=== PATIENT | male | born 1950 | race Caucasian/White ===

== ENCOUNTER 2018-03-19 15:38 | Inpatient (IN) | payer MEDICARE, MEDICAID ==
[~2018-03-19] VITALS: Ht 182.9 cm; Wt 83.9 kg
[2018-03-19 17:11] LABS: BASOPHILS % 1.1 % (0.0-2.0); LYMPHOCYTES % 13.8 % (20.0-50.0); MEAN CORPUSCULAR VOLUME 95.1 fL (80.0-94.0); MONOCYTES % 13.4 % (2.0-8.0); NEUTROPHILS % 69.7 % (40.0-76.0); RED BLOOD CELL COUNT 2.15 mill/uL (4.7-6.1); RED CELL DISTRIBUTION WIDTH 19.5 % (11.6-14.6)
[2018-03-19 17:13] LABS: HEMOGLOBIN. 6.9 g/dL (14.0-18.0)
[2018-03-19 17:14] LABS: HEMATOCRIT. 20.5 % (42.0-52.0)
[2018-03-19 17:17] LABS: CHLORIDE 108 mEq/L (98-107)
[2018-03-19 17:51] LABS: INR 1.2; PROTHROMBIN TIME 12.1 sec (9.4-11.6)
[2018-03-19 19:24] LABS: CLARITY URINE CLEAR (CLEAR); COLOR URINE YELLOW (YELLOW); KETONES URINE NEGATIVE (NEGATIVE); LEUKOCYTE ESTERASE URINE TRACE (NEGATIVE); NITRITE URINE NEGATIVE (NEGATIVE); OCCULT BLOOD URINE 3+ (NEGATIVE); PH URINE 5.5 (4.5-8.0); PROTEIN URINE 2+ (NEGATIVE); SPECIFIC GRAVITY URINE 1.017 (1.005-1.030); UROBILINOGEN URINE 0.2 E.U./dL (0.2-1.0)
[2018-03-19] MEDS ORDERED: DOCUSATE SODIUM 100MG CAPSULE PO PRN (20:15)
[2018-03-19] MEDS ORDERED: GUAIFENESIN 200MG/10ML SUGAR FREE UDC PO PRN (20:15)
[2018-03-19] MEDS ORDERED: ACETAMINOPHEN 325MG TABLET PO PRN (20:30)
[2018-03-19 21:00] VITALS: BP 139/68
[2018-03-19] MEDS ORDERED: LORAZEPAM 2MG/ML CPJ IV PRN (21:00)
[2018-03-19] MEDS ORDERED: HYDROCODONE/APAP 7.5/325MG 1 TAB TABLET PO PRN (21:00)
[2018-03-19 22:00] VITALS: BP 124/62
[2018-03-20] VITALS (16 sets, daily range): BP systolic 72–147; BP diastolic 38–89
[2018-03-20] MEDS ORDERED: GABA-529 GT (04:57)
[2018-03-20] MEDS ORDERED: ZINC220T GT (04:57)
[2018-03-20] MEDS ORDERED: POLY250017 GT (04:57)
[2018-03-20] MEDS ORDERED: FAMO40TA7 GT (04:57)
[2018-03-20] MEDS ORDERED: DOCU-138 GT (04:57)
[2018-03-20] MEDS ORDERED: FERR220S16 GT (04:57)
[2018-03-20] MEDS ORDERED: VALP250S5 PO (04:57)
[2018-03-20] MEDS ORDERED: BISA10SU62 RC (04:57)
[2018-03-20] MEDS ORDERED: METH500T6 GT (04:57)
[2018-03-20] MEDS ORDERED: PROP40TA7 GT (04:57)
[2018-03-20] MEDS ORDERED: METH500T6 PO (04:57)
[2018-03-20] MEDS ORDERED: INSLIS SUBCUT (04:58)
[2018-03-20 07:51] LABS: BASOPHILS % 0.1 % (0.0-2.0); EOSINOPHILS % 1.8 % (0.0-5.0); HEMATOCRIT. 26.4 % (42.0-52.0); LYMPHOCYTES % 9.7 % (20.0-50.0); MEAN CORPUSCULAR HEMOGLOBIN 32.6 pg (28.0-32.0); MEAN CORPUSCULAR VOLUME 95.3 fL (80.0-94.0); MONOCYTES % 11.4 % (2.0-8.0); RED BLOOD CELL COUNT 2.77 mill/uL (4.7-6.1); RED CELL DISTRIBUTION WIDTH 22.7 % (11.6-14.6)
[2018-03-20 07:57] LABS: CHLORIDE 110 mEq/L (98-107)
[2018-03-20 08:02] LABS: PHOSPHORUS 3.9 mg/dL (2.5-4.9)
[2018-03-20 08:47] LABS: LDL CHOLESTEROL 43 mg/dL (5-100)
[2018-03-20 08:48] LABS: HDL CHOLESTEROL 21 mg/dL (40-59); T4 FREE 0.64 ng/dL (0.76-1.46)
[2018-03-20] MEDS: IPRATROPIUM/ALBUTEROL 0.5-3(2.5)MG/3ML NEB INH PRN ×2 (09:30→12:44)
[2018-03-20] MEDS ORDERED: BISACODYL 5MG TABLET PO PRN (10:45)
[2018-03-20] MEDS ORDERED: LEVOTHYROXINE SODIUM 150MCG TABLET PO SCH (10:45)
[2018-03-20 10:56] LABS: BG BASE EXCESS 5.3 mmol/L (-2.0-2.0); BG CARBOXYHEMOGLOBIN 1.7 % (0.5-1.5); BG DEOXYHEMOGLOBIN 6.4 % (0.0-5.0); BG HCO3 ACT 29.8 mmol/L (22.0-26.0); BG METHEMOGLOBIN 0.3 % (0.0-1.5); BG OXYGEN SATURATION 93.5 % (92.0-98.5); BG OXYHEMOGLOBIN 91.6 % (94.0-97.0); BG PCO2 43.2 mmHg (35.0-45.0); BG PH 7.456 (7.350-7.450); BG SAMPLE SITE LEFT RADIAL; BG TIDAL VOLUME(mL) 500 mL; BG TOTAL HEMOGLOBIN 8.6 g/dL (12.0-18.0); BG VENT MODE VENT - A/C; BG VENT RATE 10 set
[2018-03-20] MEDS: DOCUSATE SODIUM SUGAR FREE 100MG/10ML UDC NG SCH (11:11)
[2018-03-20] MEDS: FAMOTIDINE 20MG TABLET PO SCH ×2 (11:11→21:53)
[2018-03-20 11:57] LABS: PLATELET 134 x1000/uL (130-400)
[2018-03-20] MEDS: METHOCARBAMOL 500MG TABLET PO SCH (12:24)
[2018-03-20 13:14] LABS: TOTAL IRON BINDING CAPACITY 182 ug/dL (250-450)
[2018-03-20] MEDS: VALPROATE SODIUM 250MG/5ML UDC PO SCH ×2 (14:07→21:53)
[2018-03-20] MEDS ORDERED: FUROSEMIDE 40MG/4ML VIAL IVP NR (16:00)
[2018-03-20] MEDS ORDERED: LEVOFLOXACIN 500MG PREMIX 100 ML IV SCH (17:00)
[2018-03-20] MEDS: IPRATROPIUM/ALBUTEROL 0.5-3(2.5)MG/3ML NEB HHN SCH ×2 (18:03→20:14)
[2018-03-20] MEDS: PANTOPRAZOLE SODIUM 40 MG/VIAL IV SCH (21:54)
[2018-03-21] VITALS (18 sets, daily range): BP systolic 116–153; BP diastolic 45–79
[2018-03-21] MEDS: ACETYLCYSTEINE 100MG/ML 10% VIAL 4ML INH SCH ×2 (00:19→08:51)
[2018-03-21] MEDS: IPRATROPIUM/ALBUTEROL 0.5-3(2.5)MG/3ML NEB HHN SCH ×6 (00:19→20:11)
[2018-03-21] MEDS: VALPROATE SODIUM 250MG/5ML UDC PO SCH ×3 (06:00→21:27)
[2018-03-21] MEDS: LEVOTHYROXINE SODIUM 50MCG TABLET PO SCH (07:30)
[2018-03-21] MEDS: FAMOTIDINE 20MG TABLET PO SCH (09:00)
[2018-03-21] MEDS: DOCUSATE SODIUM SUGAR FREE 100MG/10ML UDC NG SCH (09:00)
[2018-03-21] MEDS: METHOCARBAMOL 500MG TABLET PO SCH (09:00)
[2018-03-21] MEDS: FUROSEMIDE 40MG/4ML VIAL IVP SCH (09:19)
[2018-03-21] MEDS: PANTOPRAZOLE SODIUM 40 MG/VIAL IV SCH ×2 (09:19→21:26)
[2018-03-21 09:55] LABS: HEMATOCRIT. 22.4 % (42.0-52.0); HEMOGLOBIN. 7.8 g/dL (14.0-18.0); MEAN CORPUSCULAR HEMOGLOBIN 33.5 pg (28.0-32.0); MEAN CORPUSCULAR VOLUME 96.7 fL (80.0-94.0); MEAN PLATELET VOLUME 7.3 fl (7.4-10.4); PLATELET 193 x1000/uL (130-400); RED BLOOD CELL COUNT 2.32 mill/uL (4.7-6.1); RED CELL DISTRIBUTION WIDTH 21.6 % (11.6-14.6)
[2018-03-21 09:59] LABS: INR 1.2; PARTIAL THROMBOPLASTIN TIME 28.8 sec (23.4-31.0); PROTHROMBIN TIME 12.5 sec (9.4-11.6)
[2018-03-21 10:26] LABS: CHLORIDE 108 mEq/L (98-107)
[2018-03-21 10:33] LABS: PLATELET ESTIMATE NORMAL
[2018-03-21] MEDS ORDERED: SODIUM CHLORIDE 0.9% 10ML VIAL ONE (13:34)
[2018-03-21] MEDS ORDERED: HYDRALAZINE 20MG/ML VIAL IV PRN (13:45)
[2018-03-21] MEDS: PIPERACILLIN/TAZ 3.375G PREMIX 50 ML IV SCH ×2 (16:37→21:27)
[2018-03-21] MEDS ORDERED: MIDAZOLAM HCL 5 MG/5 ML VIAL ONE (17:46)
[2018-03-21] MEDS ORDERED: SIMETHICONE 40 MG/0.6 ML 30ML ONE (17:46)
[2018-03-21] MEDS ORDERED: FENTANYL CITRATE/PF 50MCG/ML 2ML VIAL ONE (17:46)
[2018-03-21] MEDS ORDERED: MIDAZOLAM HCL 2 MG/2 ML VIAL IV PRN (18:17)
[2018-03-22] VITALS (33 sets, daily range): BP systolic 100–156; BP diastolic 55–141
[2018-03-22] MEDS: IPRATROPIUM/ALBUTEROL 0.5-3(2.5)MG/3ML NEB HHN SCH ×7 (00:18→20:45)
[2018-03-22] MEDS: ACETYLCYSTEINE 100MG/ML 10% VIAL 4ML INH SCH ×3 (00:18→15:27)
[2018-03-22] MEDS: PIPERACILLIN/TAZ 3.375G PREMIX 50 ML IV SCH ×3 (06:14→21:48)
[2018-03-22] MEDS: LEVOTHYROXINE SODIUM 50MCG TABLET PO SCH (06:15)
[2018-03-22] MEDS: VALPROATE SODIUM 250MG/5ML UDC PO SCH ×3 (06:15→21:49)
[2018-03-22 06:51] LABS: BASOPHILS % 0.3 % (0.0-2.0); EOSINOPHILS % 2.2 % (0.0-5.0); HEMATOCRIT. 22.9 % (42.0-52.0); HEMOGLOBIN. 7.8 g/dL (14.0-18.0); LYMPHOCYTES % 7.7 % (20.0-50.0); MEAN CORPUSCULAR HEMOGLOBIN 32.2 pg (28.0-32.0); MEAN CORPUSCULAR VOLUME 93.9 fL (80.0-94.0); MEAN PLATELET VOLUME 7.1 fl (7.4-10.4); NEUTROPHILS % 81.8 % (40.0-76.0); PLATELET 196 x1000/uL (130-400); RED BLOOD CELL COUNT 2.43 mill/uL (4.7-6.1); RED CELL DISTRIBUTION WIDTH 21.6 % (11.6-14.6)
[2018-03-22 07:33] LABS: CHLORIDE 109 mEq/L (98-107)
[2018-03-22 07:50] LABS: INR 1.2; PARTIAL THROMBOPLASTIN TIME 29.6 sec (23.4-31.0); PROTHROMBIN TIME 12.2 sec (9.4-11.6)
[2018-03-22] MEDS: FUROSEMIDE 40MG/4ML VIAL IVP SCH (09:02)
[2018-03-22] MEDS: DOCUSATE SODIUM SUGAR FREE 100MG/10ML UDC NG SCH (09:03)
[2018-03-22] MEDS: PANTOPRAZOLE SODIUM 40 MG/VIAL IV SCH (09:48)
[2018-03-22] MEDS: METHOCARBAMOL 500MG TABLET PO SCH (09:51)
[2018-03-22 11:25] LABS: BG BASE EXCESS 7.3 mmol/L (-2.0-2.0); BG CARBOXYHEMOGLOBIN 0.1 % (0.5-1.5); BG DEOXYHEMOGLOBIN 1.3 % (0.0-5.0); BG FRACTION INSPIRED OXYGEN 50; BG HCO3 ACT 31.4 mmol/L (22.0-26.0); BG METHEMOGLOBIN 0.1 % (0.0-1.5); BG OXYGEN SATURATION 98.7 % (92.0-98.5); BG OXYHEMOGLOBIN 98.5 % (94.0-97.0); BG PCO2 42.2 mmHg (35.0-45.0); BG PH 7.489 (7.350-7.450); BG PO2 161.1 mmHg (75.0-100.0); BG SAMPLE SITE LEFT RADIAL; BG TIDAL VOLUME(mL) 500 mL; BG TOTAL HEMOGLOBIN 8.4 g/dL (12.0-18.0); BG VENT MODE VENT - A/C; BG VENT RATE 10 set
[2018-03-23] VITALS (23 sets, daily range): BP systolic 109–140; BP diastolic 64–83
[2018-03-23] MEDS: ACETYLCYSTEINE 100MG/ML 10% VIAL 4ML INH SCH ×3 (00:15→15:52)
[2018-03-23] MEDS: IPRATROPIUM/ALBUTEROL 0.5-3(2.5)MG/3ML NEB HHN SCH ×6 (02:05→21:03)
[2018-03-23] MEDS: IPRATROPIUM/ALBUTEROL 0.5-3(2.5)MG/3ML NEB INH PRN (03:19)
[2018-03-23] MEDS: PIPERACILLIN/TAZ 3.375G PREMIX 50 ML IV SCH ×3 (06:40→21:27)
[2018-03-23 07:40] LABS: CHLORIDE 111 mEq/L (98-107)
[2018-03-23 07:43] LABS: HEMOGLOBIN 7.1 g/dL (14.0-18.0); MEAN CORPUSCULAR HEMOGLOBIN 33.3 pg (28.0-32.0); MEAN CORPUSCULAR VOLUME 98.3 fL (80.0-94.0); PLATELET 152 x1000/uL (130-400); RED BLOOD CELL COUNT 2.13 mill/uL (4.7-6.1); RED CELL DISTRIBUTION WIDTH 21.4 % (11.6-14.6)
[2018-03-23] MEDS: LEVOTHYROXINE SODIUM 50MCG TABLET PO SCH (07:52)
[2018-03-23] MEDS: VALPROATE SODIUM 250MG/5ML UDC PO SCH ×3 (07:53→21:43)
[2018-03-23] MEDS ORDERED: POTASSIUM CHLORIDE 20MEQ/PACKET PO NR (08:39)
[2018-03-23 08:47] LABS: HEMATOCRIT 20.9 % (42.0-52.0)
[2018-03-23] MEDS: DOCUSATE SODIUM SUGAR FREE 100MG/10ML UDC NG SCH (09:35)
[2018-03-23] MEDS: PANTOPRAZOLE SODIUM 40 MG/VIAL IV SCH (09:35)
[2018-03-23] MEDS: FUROSEMIDE 40MG/4ML VIAL IVP SCH (09:36)
[2018-03-23] MEDS: METHOCARBAMOL 500MG TABLET PO SCH (09:36)
[2018-03-23 15:38] LABS: BG BASE EXCESS 7.5 mmol/L (-2.0-2.0); BG DEOXYHEMOGLOBIN 2.2 % (0.0-5.0); BG FRACTION INSPIRED OXYGEN 40; BG HCO3 ACT 31.6 mmol/L (22.0-26.0); BG METHEMOGLOBIN 0.2 % (0.0-1.5); BG OXYGEN SATURATION 97.8 % (92.0-98.5); BG OXYHEMOGLOBIN 97.6 % (94.0-97.0); BG PCO2 42.6 mmHg (35.0-45.0); BG PH 7.488 (7.350-7.450); BG PO2 113.5 mmHg (75.0-100.0); BG SAMPLE SITE RIGHT RADIAL; BG TIDAL VOLUME(mL) 550 mL; BG TOTAL HEMOGLOBIN 7.6 g/dL (12.0-18.0); BG VENT MODE VENT - A/C; BG VENT RATE 10 set
[2018-03-23 23:53] LABS: HEMATOCRIT 26.6 % (42.0-52.0); HEMOGLOBIN 9.1 g/dL (14.0-18.0)
[2018-03-24] VITALS (11 sets, daily range): BP systolic 120–164; BP diastolic 37–86
[2018-03-24] MEDS: ACETYLCYSTEINE 100MG/ML 10% VIAL 4ML INH SCH ×3 (00:14→16:25)
[2018-03-24] MEDS: IPRATROPIUM/ALBUTEROL 0.5-3(2.5)MG/3ML NEB HHN SCH ×6 (00:15→21:00)
[2018-03-24] MEDS: PIPERACILLIN/TAZ 3.375G PREMIX 50 ML IV SCH ×3 (05:42→22:49)
[2018-03-24 06:30] LABS: BASOPHILS % 0.1 % (0.0-2.0); EOSINOPHILS % 2.5 % (0.0-5.0); HEMATOCRIT. 25.7 % (42.0-52.0); HEMOGLOBIN. 8.7 g/dL (14.0-18.0); LYMPHOCYTES % 10.1 % (20.0-50.0); MEAN CORPUSCULAR HEMOGLOBIN 31.4 pg (28.0-32.0); MEAN CORPUSCULAR VOLUME 92.7 fL (80.0-94.0); MEAN PLATELET VOLUME 7.4 fl (7.4-10.4); MONOCYTES % 10.6 % (2.0-8.0); NEUTROPHILS % 76.7 % (40.0-76.0); PLATELET 140 x1000/uL (130-400); RED BLOOD CELL COUNT 2.78 mill/uL (4.7-6.1); RED CELL DISTRIBUTION WIDTH 21.4 % (11.6-14.6)
[2018-03-24 06:54] LABS: CHLORIDE 113 mEq/L (98-107)
[2018-03-24] MEDS: LEVOTHYROXINE SODIUM 50MCG TABLET PO SCH (07:42)
[2018-03-24] MEDS: DOCUSATE SODIUM SUGAR FREE 100MG/10ML UDC NG SCH (09:00)
[2018-03-24] MEDS: PANTOPRAZOLE SODIUM 40 MG/VIAL IV SCH (09:03)
[2018-03-24] MEDS: METHOCARBAMOL 500MG TABLET PO SCH (09:04)
[2018-03-24] MEDS: FUROSEMIDE 40MG/4ML VIAL IVP SCH (09:04)
[2018-03-24] MEDS: VALPROATE SODIUM 250MG/5ML UDC PO SCH ×3 (09:05→22:49)
[2018-03-24] MEDS ORDERED: POTASSIUM CHLORIDE INJ 40 MEQ in DEXT 5% WATER 250 ML IV ONE (16:30)
[2018-03-24] MEDS: KCL 20MEQ/100ML PREMIX 100 ML IV SCH ×3 (18:27→22:00)
[2018-03-25] VITALS (11 sets, daily range): BP systolic 108–157; BP diastolic 59–84
[2018-03-25] MEDS: ACETYLCYSTEINE 100MG/ML 10% VIAL 4ML INH SCH ×3 (00:26→16:17)
[2018-03-25] MEDS: IPRATROPIUM/ALBUTEROL 0.5-3(2.5)MG/3ML NEB HHN SCH ×6 (00:27→20:50)
[2018-03-25 06:21] LABS: BASOPHILS % 0.1 % (0.0-2.0); EOSINOPHILS % 4.2 % (0.0-5.0); HEMATOCRIT. 27.7 % (42.0-52.0); HEMOGLOBIN. 9.4 g/dL (14.0-18.0); LYMPHOCYTES % 10.6 % (20.0-50.0); MEAN CORPUSCULAR HEMOGLOBIN 32.2 pg (28.0-32.0); MEAN CORPUSCULAR VOLUME 94.8 fL (80.0-94.0); MEAN PLATELET VOLUME 7.1 fl (7.4-10.4); MONOCYTES % 12.5 % (2.0-8.0); NEUTROPHILS % 72.6 % (40.0-76.0); PLATELET 114 x1000/uL (130-400); RED BLOOD CELL COUNT 2.92 mill/uL (4.7-6.1); RED CELL DISTRIBUTION WIDTH 21.4 % (11.6-14.6)
[2018-03-25 06:49] LABS: CHLORIDE 113 mEq/L (98-107)
[2018-03-25] MEDS: PIPERACILLIN/TAZ 3.375G PREMIX 50 ML IV SCH ×3 (06:56→22:06)
[2018-03-25] MEDS: LEVOTHYROXINE SODIUM 50MCG TABLET PO SCH (08:07)
[2018-03-25] MEDS: PANTOPRAZOLE SODIUM 40 MG/VIAL IV SCH (08:20)
[2018-03-25] MEDS: FUROSEMIDE 40MG/4ML VIAL IVP SCH (08:50)
[2018-03-25] MEDS: DOCUSATE SODIUM SUGAR FREE 100MG/10ML UDC NG SCH (08:50)
[2018-03-25] MEDS: METHOCARBAMOL 500MG TABLET PO SCH (08:50)
[2018-03-25] MEDS: VALPROATE SODIUM 250MG/5ML UDC PO SCH ×3 (08:51→23:22)
[2018-03-26] VITALS (10 sets, daily range): BP systolic 119–148; BP diastolic 60–90
[2018-03-26] MEDS: IPRATROPIUM/ALBUTEROL 0.5-3(2.5)MG/3ML NEB HHN SCH ×5 (00:28→16:00)
[2018-03-26 05:36] LABS: BASOPHILS % 0.1 % (0.0-2.0); EOSINOPHILS % 3.3 % (0.0-5.0); HEMOGLOBIN. 8.8 g/dL (14.0-18.0); LYMPHOCYTES % 11.3 % (20.0-50.0); MEAN CORPUSCULAR HEMOGLOBIN 31.9 pg (28.0-32.0); MEAN CORPUSCULAR VOLUME 94.5 fL (80.0-94.0); MEAN PLATELET VOLUME 7.8 fl (7.4-10.4); MONOCYTES % 12.3 % (2.0-8.0); PLATELET 74 x1000/uL (130-400); RED BLOOD CELL COUNT 2.75 mill/uL (4.7-6.1); RED CELL DISTRIBUTION WIDTH 21.1 % (11.6-14.6)
[2018-03-26 06:28] LABS: CHLORIDE 114 mEq/L (98-107)
[2018-03-26] MEDS: PIPERACILLIN/TAZ 3.375G PREMIX 50 ML IV SCH ×2 (06:33→14:35)
[2018-03-26] MEDS: DOCUSATE SODIUM SUGAR FREE 100MG/10ML UDC NG SCH (09:00)
[2018-03-26] MEDS ORDERED: FUROSEMIDE 40MG TABLET GT SCH (09:00)
[2018-03-26] MEDS: LEVOTHYROXINE SODIUM 50MCG TABLET PO SCH (10:48)
[2018-03-26] MEDS: METHOCARBAMOL 500MG TABLET PO SCH (10:49)
[2018-03-26] MEDS: PANTOPRAZOLE SODIUM 40 MG/VIAL IV SCH (10:49)
[2018-03-26] MEDS: VALPROATE SODIUM 250MG/5ML UDC PO SCH (14:35)
[2018-03-26] MEDS ORDERED: PIPERACILLIN/TAZ 3.375G PREMIX 50 ML IV SCH (20:00)
[2018-03-27 08:16] LABS: METHYLMALONIC ACID 150 nmol/L (0-378)
[2018-03-27 13:44] LABS: IMMUNOGLOBULIN A 986 mg/dL (61-437); IMMUNOGLOBULIN G 1401 mg/dL (700-1600); IMMUNOGLOBULIN M 346 mg/dL (20-172)
== END 2018-03-26 18:45 | DRG 870 ==
LOC: ER 15:38 → 5EST 17:50 → EDBD 17:50 → ENRESERV 18:27 → SUPCPDRO 20:05 → MICUSO 03-22 02:07 → 5EST 03-22 16:15
PROVIDERS: ADMIT Family Medicine Adult Medicine; ATTEND Family Medicine Adult Medicine
PROC: 0DB68ZX Excision of Stomach, Via Natural or Artificial Opening Endoscopic, Diagnostic (ICD-10-PCS; 2018-03-19)
PROC: 5A1955Z Respiratory Ventilation, Greater than 96 Consecutive Hours (ICD-10-PCS; 2018-03-19)
PROC: 30233N1 Transfusion of Nonautologous Red Blood Cells into Peripheral Vein, Percutaneous Approach (ICD-10-PCS; principal; 2018-03-20)
DX: A41.9 Sepsis, unspecified organism (principal); S06.5X9A Traumatic subdural hemorrhage with loss of consciousness of unspecified duration, initial encounter; J96.20 Acute and chronic respiratory failure, unspecified whether with hypoxia or hypercapnia; E43 Unspecified severe protein-calorie malnutrition; G93.40 Encephalopathy, unspecified; N39.0 Urinary tract infection, site not specified; L03.211 Cellulitis of face; E87.0 Hyperosmolality and hypernatremia; I50.30 Unspecified diastolic (congestive) heart failure; Z99.11 Dependence on respirator [ventilator] status; J98.11 Atelectasis; D53.9 Nutritional anemia, unspecified; E03.9 Hypothyroidism, unspecified; K29.60 Other gastritis without bleeding; K44.9 Diaphragmatic hernia without obstruction or gangrene; G40.909 Epilepsy, unspecified, not intractable, without status epilepticus; I11.0 Hypertensive heart disease with heart failure; E87.8 Other disorders of electrolyte and fluid balance, not elsewhere classified; J38.6 Stenosis of larynx; E11.42 Type 2 diabetes mellitus with diabetic polyneuropathy; R00.1 Bradycardia, unspecified; I27.20 Pulmonary hypertension, unspecified; J39.2 Other diseases of pharynx; K05.10 Chronic gingivitis, plaque induced; X58.XXXA Exposure to other specified factors, initial encounter; J32.0 Chronic maxillary sinusitis; J32.3 Chronic sphenoidal sinusitis; J32.2 Chronic ethmoidal sinusitis; J32.1 Chronic frontal sinusitis; S90.812A Abrasion, left foot, initial encounter; S90.811A Abrasion, right foot, initial encounter; K21.9 Gastro-esophageal reflux disease without esophagitis; K29.50 Unspecified chronic gastritis without bleeding; Z85.819 Personal history of malignant neoplasm of unspecified site of lip, oral cavity, and pharynx; Z93.1 Gastrostomy status; Z93.0 Tracheostomy status; Z68.25 Body mass index [BMI] 25.0-25.9, adult; Z92.3 Personal history of irradiation; Z87.828 Personal history of other (healed) physical injury and trauma; Y93.89 Activity, other specified; Y92.89 Other specified places as the place of occurrence of the external cause; Y99.8 Other external cause status; Z79.4 Long term (current) use of insulin; Z79.899 Other long term (current) drug therapy; Z86.73 Personal history of transient ischemic attack (TIA), and cerebral infarction without residual deficits
CPT/HCPCS: 36415; 36430; 36600; 51702; 70450; 70486; 70490; 71045; 80048; 80053; 80061; 81003; 82270; 82375; 82378; 82728; 82784; 82805; 83036; 83540; 83550; 83615; 83735; 83880; 83921; 84100; 84145; 84439; 84443; 85014; 85018; 85025; 85027; 85610; 85730; 86334; 86850; 86900; 86920; 87040; 87086; 88305; 88312; 88313; 93005; 93306; 93970; 94002; 94003; 94640; 99285; A4216; A6261; C9113; J1940; J1956; J2250; J2543; J3010; J3480; J7030; J7050; J7608; J7620; P9016; A4315

== ENCOUNTER 2018-06-30 08:30 | Inpatient (IN) | payer MEDICARE, MEDICAID ==
[~2018-06-30] VITALS: Ht 175.3 cm; Wt 76.2 kg
[2018-06-30] VITALS (11 sets, daily range): BP systolic 107–137; BP diastolic 64–83
[~2018-06-30 08:30] MED LIST: ACET-2178 PEG; AMLO5TAB88 PEG; ASCO-339 PEG; BISA10SU8 RC; CHLO473M2 SSP; CRAN3875 PEG; CRAN450T10 PEG; CYCL10TA7 PEG; DEXJ4 IV; DEXTL PEG; DIPH-909 PEG; DOCU-138 PEG; FAMO20TA8 PEG; FERR325T6 PEG; FLUC200T PO; HYDR-4134 PEG; LEVE500T19 PEG; LEVO88TA7 PO; MOM PEG; MULT1TAB76 PEG; OFLO5DRO4 LEFT EAR; SUCR1TAB PEG; ZINC220T PEG; [UNRECOGNIZED DRUG - OTHER] PEG; [UNRECOGNIZED DRUG - REMARK] PEG
[2018-06-30] MEDS ORDERED: SODIUM CHLORIDE 0.9% 1,000 ML IV ONE (09:00)
[2018-06-30 09:43] LABS: BASOPHILS % 0.8 % (0.0-2.0); EOSINOPHILS % 1.6 % (0.0-5.0); HEMATOCRIT. 21.5 % (42.0-52.0); HEMOGLOBIN. 7.2 g/dL (14.0-18.0); LYMPHOCYTES % 7.4 % (20.0-50.0); MEAN CORPUSCULAR HEMOGLOBIN 31.4 pg (28.0-32.0); MEAN CORPUSCULAR VOLUME 93.6 fL (80.0-94.0); MEAN PLATELET VOLUME 7.4 fl (7.4-10.4); MONOCYTES % 10.3 % (2.0-8.0); NEUTROPHILS % 79.9 % (40.0-76.0); PLATELET 134 x1000/uL (130-400); RED CELL DISTRIBUTION WIDTH 18.2 % (11.6-14.6)
[2018-06-30 09:50] LABS: INR 1.1; PROTHROMBIN TIME 11.4 sec (9.1-11.1)
[2018-06-30 09:53] LABS: CHLORIDE 115 mEq/L (98-107)
[2018-06-30] MEDS ORDERED: FUROSEMIDE 100MG/10ML VIAL IV STA (10:04)
[2018-06-30] MEDS ORDERED: SODIUM POLYSTYRENE SULFONATE 15 G/60 ML BOT PO ONE (10:15)
[2018-06-30] MEDS ORDERED: INSULIN REGULAR (HUMULIN R) 300UNITS/3ML IV ONE (10:15)
[2018-06-30] MEDS ORDERED: ALBUTEROL (0.083%) 2.5MG/3ML NEB HHN ONE (10:15)
[2018-06-30] MEDS ORDERED: DEXTROSE 50% WATER 50ML SYRINGE IV ONE ×2 (10:15→15:33)
[2018-06-30] MEDS ORDERED: PIPERACILLIN/TAZOBACTAM 3.375GM/50ML PREMIX IV NR (10:30)
[2018-06-30] MEDS ORDERED: VANCOMYCIN 1 G PREMIX 200 ML IV SCH (10:30)
[2018-06-30] MEDS ORDERED: ALBUTEROL (0.5%) 2.5MG/0.5ML NEB HHN ONE (11:23)
[2018-06-30] MEDS ORDERED: ONDANSETRON HCL 4MG/2ML INJ IV PRN (11:30)
[2018-06-30] MEDS ORDERED: DEXAMETHASONE 4MG TABLET PO NR (12:30)
[2018-06-30] MEDS ORDERED: LEVOTHYROXINE SODIUM 88MCG TABLET PO NR (13:00)
[2018-06-30] MEDS: PANTOPRAZOLE 40MG DR TABLET PO SCH (14:27)
[2018-06-30] MEDS: HYDRALAZINE HCL 25MG TABLET PO SCH ×2 (14:28→22:55)
[2018-06-30] MEDS: SODIUM CHLORIDE 0.45% 1,000 ML IV SCH (14:41)
[2018-06-30] MEDS ORDERED: LEVOFLOXACIN 500MG PREMIX 100 ML IV NR (15:00)
[2018-06-30] MEDS: DEXTROSE 50% WATER 50ML SYRINGE IV PRN ×2 (15:33→20:20)
[2018-06-30] MEDS: DEXAMETHASONE 2MG TABLET PO SCH ×2 (19:31→23:47)
[2018-06-30] MEDS: IPRATROPIUM/ALBUTEROL 0.5-3(2.5)MG/3ML NEB HHN SCH (20:25)
[2018-06-30] MEDS: LEVETIRACETAM 500MG TABLET PO SCH (20:48)
[2018-07-01] VITALS (12 sets, daily range): BP systolic 117–139; BP diastolic 24–93
[2018-07-01] MEDS: IPRATROPIUM/ALBUTEROL 0.5-3(2.5)MG/3ML NEB HHN SCH ×5 (00:55→20:07)
[2018-07-01] MEDS: SODIUM CHLORIDE 0.45% 1,000 ML IV SCH ×2 (03:29→09:39)
[2018-07-01 05:42] LABS: CHLORIDE 113 mEq/L (98-107)
[2018-07-01] MEDS: HYDRALAZINE HCL 25MG TABLET PO SCH ×3 (06:12→21:01)
[2018-07-01] MEDS: DEXAMETHASONE 2MG TABLET PO SCH ×3 (06:12→18:49)
[2018-07-01] MEDS ORDERED: SODIUM POLYSTYRENE SULFONATE 15 G/60 ML BOT PO NR (07:00)
[2018-07-01] MEDS: LEVETIRACETAM 500MG TABLET PO SCH ×2 (09:33→21:01)
[2018-07-01] MEDS: PANTOPRAZOLE 40MG DR TABLET PO SCH (09:33)
[2018-07-01 11:06] LABS: CHLORIDE 112 mEq/L (98-107)
[2018-07-01 11:10] LABS: HEMATOCRIT. 28.2 % (42.0-52.0); HEMOGLOBIN. 9.5 g/dL (14.0-18.0); MEAN CORPUSCULAR HEMOGLOBIN 31.8 pg (28.0-32.0); MEAN PLATELET VOLUME 8.2 fl (7.4-10.4); PLATELET 167 x1000/uL (130-400); RED CELL DISTRIBUTION WIDTH 17.5 % (11.6-14.6)
[2018-07-01] MEDS ORDERED: DEXTROSE 50% WATER 50ML SYRINGE IV SCH (12:30)
[2018-07-01] MEDS ORDERED: CALCIUM CHLORIDE 1,000 MG in DEXT 5% WATER 90 ML IV SCH (12:30)
[2018-07-01] MEDS ORDERED: INSULIN REGULAR (HUMULIN R) UD 100 UNITS/ML SYR IV SCH (12:30)
[2018-07-01] MEDS ORDERED: MAGNESIUM 2 G PREMIX 50 ML IV SCH (13:00)
[2018-07-01] MEDS ORDERED: SODIUM POLYSTYRENE SULFONATE 15 G/60 ML BOT PO SCH (13:00)
[2018-07-01 14:30] LABS: BG BASE EXCESS -2.4 mmol/L (-2.0-2.0); BG CARBOXYHEMOGLOBIN 0.9 % (0.5-1.5); BG DEOXYHEMOGLOBIN 3.7 % (0.0-5.0); BG FRACTION INSPIRED OXYGEN 40; BG HCO3 ACT 21.4 mmol/L (22.0-26.0); BG OXYGEN SATURATION 96.3 % (92.0-98.5); BG OXYHEMOGLOBIN 95.4 % (94.0-97.0); BG PCO2 33.4 mmHg (35.0-45.0); BG PH 7.425 (7.350-7.450); BG PO2 86.9 mmHg (75.0-100.0); BG PRESSURE SUPPORT 14; BG SAMPLE SITE RIGHT RADIAL; BG TIDAL VOLUME(mL) 500 mL; BG TOTAL HEMOGLOBIN 10.6 g/dL (12.0-18.0); BG VENT MODE VENT - SIMV; BG VENT RATE 10 set
[2018-07-01] MEDS ORDERED: VANCOMYCIN 1250MG in DEXTROSE 5% WATER 250ML IV NR (18:00)
[2018-07-01] MEDS: PIPERACILLIN/TAZ 3.375G PREMIX 50 ML IV SCH (18:35)
[2018-07-02] VITALS (11 sets, daily range): BP systolic 120–159; BP diastolic 58–112
[2018-07-02] MEDS: PIPERACILLIN/TAZ 3.375G PREMIX 50 ML IV SCH ×5 (00:34→23:18)
[2018-07-02] MEDS: DEXAMETHASONE 2MG TABLET PO SCH ×5 (00:35→23:18)
[2018-07-02] MEDS: VANCOMYCIN 1 G PREMIX 200 ML IV SCH ×2 (02:28→14:48)
[2018-07-02 02:42] LABS: PLATELET ESTIMATE NORMAL
[2018-07-02] MEDS: HYDRALAZINE HCL 25MG TABLET PO SCH ×3 (05:26→21:13)
[2018-07-02] MEDS: PANTOPRAZOLE 40MG DR TABLET PO SCH (06:12)
[2018-07-02] MEDS: SODIUM CHLORIDE 0.45% 1,000 ML IV SCH (06:14)
[2018-07-02 06:48] LABS: HEMATOCRIT. 28.8 % (42.0-52.0); HEMOGLOBIN. 9.8 g/dL (14.0-18.0); MEAN CORPUSCULAR VOLUME 94.4 fL (80.0-94.0); MEAN PLATELET VOLUME 8.7 fl (7.4-10.4); PLATELET 192 x1000/uL (130-400); RED BLOOD CELL COUNT 3.05 mill/uL (4.7-6.1); RED CELL DISTRIBUTION WIDTH 17.5 % (11.6-14.6)
[2018-07-02 07:05] LABS: CHLORIDE 112 mEq/L (98-107)
[2018-07-02] MEDS: IPRATROPIUM/ALBUTEROL 0.5-3(2.5)MG/3ML NEB HHN PRN (08:14)
[2018-07-02] MEDS: LEVETIRACETAM 500MG TABLET PO SCH ×2 (09:17→21:13)
[2018-07-02 10:14] LABS: PLATELET ESTIMATE NORMAL
[2018-07-02] MEDS ORDERED: SODIUM POLYSTYRENE SULFONATE 15 G/60 ML BOT PO NR (12:00)
[2018-07-02] MEDS: ACETYLCYSTEINE 100MG/ML 10% VIAL 4ML INH SCH (12:09)
[2018-07-02] MEDS: IPRATROPIUM/ALBUTEROL 0.5-3(2.5)MG/3ML NEB HHN SCH ×3 (12:09→20:37)
[2018-07-02] MEDS ORDERED: LIDOCAINE HCL 1% 20ML VIAL (Pyxis) INJ ONE (12:45)
[2018-07-02] MEDS: NEOMY SULF/BACITRAC ZN/POLY OINT 28GM TOP SCH ×2 (14:49→21:14)
[2018-07-03] VITALS (12 sets, daily range): BP systolic 119–140; BP diastolic 63–77
[2018-07-03] MEDS: VANCOMYCIN 1 G PREMIX 200 ML IV SCH (01:38)
[2018-07-03] MEDS: PIPERACILLIN/TAZ 3.375G PREMIX 50 ML IV SCH ×4 (06:04→22:37)
[2018-07-03] MEDS: HYDRALAZINE HCL 25MG TABLET PO SCH ×3 (06:04→22:36)
[2018-07-03] MEDS: DEXAMETHASONE 2MG TABLET PO SCH ×4 (06:04→22:36)
[2018-07-03 07:17] LABS: CHLORIDE 113 mEq/L (98-107)
[2018-07-03] MEDS: ACETYLCYSTEINE 100MG/ML 10% VIAL 4ML INH SCH ×4 (07:55→23:56)
[2018-07-03] MEDS: IPRATROPIUM/ALBUTEROL 0.5-3(2.5)MG/3ML NEB HHN SCH ×4 (07:55→20:48)
[2018-07-03] MEDS ORDERED: FAMOTIDINE 20MG TABLET PO SCH (09:00)
[2018-07-03 09:27] LABS: HEMATOCRIT. 28.5 % (42.0-52.0); HEMOGLOBIN. 9.7 g/dL (14.0-18.0); MEAN CORPUSCULAR HEMOGLOBIN 31.8 pg (28.0-32.0); MEAN CORPUSCULAR VOLUME 93.8 fL (80.0-94.0); MEAN PLATELET VOLUME 8.3 fl (7.4-10.4); PLATELET 208 x1000/uL (130-400); RED BLOOD CELL COUNT 3.04 mill/uL (4.7-6.1)
[2018-07-03] MEDS: PANTOPRAZOLE 40MG DR TABLET PO SCH (09:33)
[2018-07-03] MEDS: LEVETIRACETAM 500MG TABLET PO SCH ×2 (09:33→22:36)
[2018-07-03] MEDS: NEOMY SULF/BACITRAC ZN/POLY OINT 28GM TOP SCH ×2 (09:40→22:37)
[2018-07-03 11:55] LABS: PLATELET ESTIMATE NORMAL
[2018-07-03] MEDS: VANCOMYCIN 1250MG in DEXTROSE 5% WATER 250ML IV SCH (17:27)
[2018-07-03] MEDS: IPRATROPIUM/ALBUTEROL 0.5-3(2.5)MG/3ML NEB HHN PRN (23:56)
[2018-07-04] VITALS (15 sets, daily range): BP systolic 126–163; BP diastolic 52–90
[2018-07-04] MEDS: HYDRALAZINE HCL 25MG TABLET PO SCH ×3 (06:12→20:27)
[2018-07-04] MEDS: PIPERACILLIN/TAZ 3.375G PREMIX 50 ML IV SCH ×3 (06:12→17:18)
[2018-07-04] MEDS: DEXAMETHASONE 2MG TABLET PO SCH ×2 (06:12→11:32)
[2018-07-04] MEDS: IPRATROPIUM/ALBUTEROL 0.5-3(2.5)MG/3ML NEB HHN SCH ×3 (07:38→20:38)
[2018-07-04 07:55] LABS: HEMATOCRIT. 25.2 % (42.0-52.0); HEMOGLOBIN. 8.5 g/dL (14.0-18.0); MEAN CORPUSCULAR HEMOGLOBIN 31.5 pg (28.0-32.0); MEAN CORPUSCULAR VOLUME 93.1 fL (80.0-94.0); MEAN PLATELET VOLUME 8.1 fl (7.4-10.4); PLATELET 213 x1000/uL (130-400)
[2018-07-04] MEDS: NEOMY SULF/BACITRAC ZN/POLY OINT 28GM TOP SCH ×2 (08:32→20:29)
[2018-07-04] MEDS: PANTOPRAZOLE 40MG DR TABLET PO SCH (08:32)
[2018-07-04] MEDS: LEVETIRACETAM 500MG TABLET PO SCH ×2 (08:32→20:27)
[2018-07-04 08:46] LABS: CHLORIDE 112 mEq/L (98-107)
[2018-07-04 08:57] LABS: PHOSPHORUS 4.8 mg/dL (2.5-4.9)
[2018-07-04] MEDS: VANCOMYCIN 1250MG in DEXTROSE 5% WATER 250ML IV SCH (11:32)
[2018-07-04 11:42] LABS: PLATELET ESTIMATE NORMAL
[2018-07-04] MEDS: ACETYLCYSTEINE 100MG/ML 10% VIAL 4ML INH SCH (15:03)
[2018-07-04] MEDS: DEXAMETHASONE 1MG TABLET PO SCH (17:18)
[2018-07-05] VITALS (15 sets, daily range): BP systolic 137–158; BP diastolic 55–88
[2018-07-05] MEDS: ACETYLCYSTEINE 100MG/ML 10% VIAL 4ML INH SCH ×2 (00:32→07:55)
[2018-07-05] MEDS: IPRATROPIUM/ALBUTEROL 0.5-3(2.5)MG/3ML NEB HHN SCH ×4 (00:33→16:25)
[2018-07-05] MEDS: DEXAMETHASONE 1MG TABLET PO SCH ×3 (00:39→12:42)
[2018-07-05] MEDS: PIPERACILLIN/TAZ 3.375G PREMIX 50 ML IV SCH ×3 (00:39→12:42)
[2018-07-05] MEDS: HYDRALAZINE HCL 25MG TABLET PO SCH ×2 (05:55→14:08)
[2018-07-05] MEDS: PANTOPRAZOLE 40MG DR TABLET PO SCH (05:55)
[2018-07-05] MEDS: LEVETIRACETAM 500MG TABLET PO SCH (08:51)
[2018-07-05] MEDS: NEOMY SULF/BACITRAC ZN/POLY OINT 28GM TOP SCH (08:52)
[2018-07-05 10:44] LABS: HEMATOCRIT. 28.5 % (42.0-52.0); HEMOGLOBIN. 9.5 g/dL (14.0-18.0); MEAN CORPUSCULAR HEMOGLOBIN 31.3 pg (28.0-32.0); MEAN CORPUSCULAR VOLUME 93.7 fL (80.0-94.0); PLATELET 232 x1000/uL (130-400); RED BLOOD CELL COUNT 3.04 mill/uL (4.7-6.1); RED CELL DISTRIBUTION WIDTH 17.9 % (11.6-14.6)
[2018-07-05 11:12] LABS: CHLORIDE 113 mEq/L (98-107)
[2018-07-05 13:49] LABS: PLATELET ESTIMATE NORMAL
== END 2018-07-05 15:17 | disposition short-term general hospital (02) | DRG 870 ==
LOC: ER 08:30 → 5EST 09:47 → EDBEDREQSVC 09:52 → EDBEDREQ 09:52 → ENRESERV 10:55
PROVIDERS: ADMIT Family Medicine Adult Medicine; ATTEND Family Medicine Adult Medicine
PROC: 5A1955Z Respiratory Ventilation, Greater than 96 Consecutive Hours (ICD-10-PCS; principal; 2018-06-30)
PROC: 30233N1 Transfusion of Nonautologous Red Blood Cells into Peripheral Vein, Percutaneous Approach (ICD-10-PCS; 2018-06-30)
PROC: 05HY33Z Insertion of Infusion Device into Upper Vein, Percutaneous Approach (ICD-10-PCS; 2018-07-02)
PROC: B54NZZA Ultrasonography of Left Upper Extremity Veins, Guidance (ICD-10-PCS; 2018-07-02)
DX: A41.9 Sepsis, unspecified organism (principal); J96.20 Acute and chronic respiratory failure, unspecified whether with hypoxia or hypercapnia; E43 Unspecified severe protein-calorie malnutrition; N17.0 Acute kidney failure with tubular necrosis; J18.1 Lobar pneumonia, unspecified organism; G93.40 Encephalopathy, unspecified; Z99.11 Dependence on respirator [ventilator] status; B37.49 Other urogenital candidiasis; D64.9 Anemia, unspecified; E87.5 Hyperkalemia; E83.42 Hypomagnesemia; E03.9 Hypothyroidism, unspecified; E86.0 Dehydration; G40.909 Epilepsy, unspecified, not intractable, without status epilepticus; K21.9 Gastro-esophageal reflux disease without esophagitis; I10 Essential (primary) hypertension; F41.9 Anxiety disorder, unspecified; E11.65 Type 2 diabetes mellitus with hyperglycemia; R13.10 Dysphagia, unspecified; Z93.0 Tracheostomy status; S80.212A Abrasion, left knee, initial encounter; Z79.4 Long term (current) use of insulin; Z85.819 Personal history of malignant neoplasm of unspecified site of lip, oral cavity, and pharynx; Z86.73 Personal history of transient ischemic attack (TIA), and cerebral infarction without residual deficits; Z87.01 Personal history of pneumonia (recurrent); Z92.3 Personal history of irradiation; Z93.1 Gastrostomy status; Z99.81 Dependence on supplemental oxygen; X58.XXXA Exposure to other specified factors, initial encounter; Y93.89 Activity, other specified; Y92.89 Other specified places as the place of occurrence of the external cause; Y99.8 Other external cause status; Z68.24 Body mass index [BMI] 24.0-24.9, adult
CPT/HCPCS: 36415; 36569; 36600; 71045; 76937; 80048; 80202; 82375; 82805; 82962; 83605; 83735; 84100; 84132; 84484; 86850; 86900; 86920; 87070; 87077; 87186; 93005; 94002; 94003; 94640; 96374; 96375; 99285; C1725; J1815; J1940; J1956; J2543; J3370; J3475; J3490; J7030; J7040; J7050; J7060; J7608; J7611; J7620; J8540; P9016

== ENCOUNTER 2018-07-16 21:27 | Inpatient (IN) | payer MEDICARE, MEDICAID ==
[~2018-07-16] VITALS: Ht 180.3 cm; Wt 70.3 kg
[2018-07-17 00:20] LABS: BASOPHILS % 0.8 % (0.0-2.0); EOSINOPHILS % 3.8 % (0.0-5.0); LYMPHOCYTES % 9.9 % (20.0-50.0); MEAN CORPUSCULAR HEMOGLOBIN 33.9 pg (28.0-32.0); MEAN CORPUSCULAR VOLUME 95.3 fL (80.0-94.0); MEAN PLATELET VOLUME 8.8 fl (7.4-10.4); MONOCYTES % 13.4 % (2.0-8.0); NEUTROPHILS % 72.1 % (40.0-76.0); PLATELET 147 x1000/uL (130-400); RED BLOOD CELL COUNT 1.98 mill/uL (4.7-6.1); RED CELL DISTRIBUTION WIDTH 17.8 % (11.6-14.6)
[2018-07-17 00:23] LABS: CHLORIDE 108 mEq/L (98-107)
[2018-07-17 00:25] LABS: INR 1.1; PARTIAL THROMBOPLASTIN TIME 27.1 sec (23.4-31.0); PROTHROMBIN TIME 11.1 sec (9.1-11.1)
[2018-07-17 00:37] LABS: HEMATOCRIT. 18.9 % (42.0-52.0); HEMOGLOBIN. 6.7 g/dL (14.0-18.0)
[2018-07-17] MEDS ORDERED: NA PHOS,M-B/NA PHOS,DI-BA ENEMA 118ML PR PRN (08:45)
[2018-07-17] MEDS ORDERED: ACETAMINOPHEN 325MG TABLET PO PRN (08:45)
[2018-07-17] MEDS ORDERED: CLONIDINE 0.1MG TABLET PO PRN (08:45)
[2018-07-17] MEDS ORDERED: DOCUSATE SODIUM 100MG CAPSULE PO PRN (08:45)
[2018-07-17] MEDS ORDERED: MAGNESIUM HYDROXIDE 400MG/5ML 30ML UDC PEG PRN (08:45)
[2018-07-17 09:29] LABS: HEMATOCRIT. 23.7 % (42.0-52.0); HEMOGLOBIN. 8.3 g/dL (14.0-18.0); MEAN CORPUSCULAR HEMOGLOBIN 33.2 pg (28.0-32.0); MEAN CORPUSCULAR VOLUME 94.4 fL (80.0-94.0); MEAN PLATELET VOLUME 8.4 fl (7.4-10.4); PLATELET 135 x1000/uL (130-400); RED BLOOD CELL COUNT 2.51 mill/uL (4.7-6.1); RED CELL DISTRIBUTION WIDTH 17.2 % (11.6-14.6)
[2018-07-17 10:05] LABS: PLATELET ESTIMATE NORMAL
[2018-07-17 10:33] LABS: CHLORIDE 110 mEq/L (98-107)
[2018-07-17] MEDS ORDERED: DEXTROSE 50% WATER 50ML SYRINGE IV ONE (11:06)
[2018-07-17] MEDS ORDERED: CALCIUM GLUCONATE 100MG/ML 10ML VIAL IV ONE (12:15)
[2018-07-17] MEDS ORDERED: DEXT 5%/0.45% NACL 500ML 1,000 ML IV SCH (13:00)
[2018-07-17 14:00] VITALS: BP 128/81
[2018-07-17] MEDS ORDERED: CHLORHEXIDINE GLUCONATE 0.12% MOUTHWASH UDC SSP SCH (14:00)
[2018-07-17] MEDS ORDERED: CALCIUM GLUCONATE 1000 MG in DEXTROSE 5% WATER 100 ML IV SCH (14:00)
[2018-07-17] MEDS ORDERED: SODIUM POLYSTYRENE SULFONATE 15 G/60 ML BOT PEG SCH (14:00)
[2018-07-17] MEDS: LEVOTHYROXINE SODIUM 88MCG TABLET PO SCH (14:29)
[2018-07-17] MEDS: DEXAMETHASONE 4MG/ML 1ML VIAL IV SCH ×2 (14:29→18:26)
[2018-07-17] MEDS: AMLODIPINE 5MG TABLET PEG SCH (14:30)
[2018-07-17] MEDS: HYDRALAZINE HCL 25MG TABLET PEG SCH ×2 (14:30→21:08)
[2018-07-17] MEDS: DEXT 5%/0.45% NACL 1000ML 1,000 ML IV SCH (14:54)
[2018-07-17] MEDS: LEVETIRACETAM 500MG TABLET PEG SCH ×2 (14:55→21:08)
[2018-07-17 16:00] VITALS: BP 134/74
[2018-07-17] MEDS ORDERED: IPRATROPIUM/ALBUTEROL 0.5-3(2.5)MG/3ML NEB HHN PRN (16:00)
[2018-07-17] MEDS ORDERED: DEXTROSE 50% WATER 50ML SYRINGE IV PRN (16:15)
[2018-07-17] MEDS: IPRATROPIUM/ALBUTEROL 0.5-3(2.5)MG/3ML NEB HHN SCH ×3 (16:25→23:44)
[2018-07-17 16:43] VITALS: BP 135/78
[2018-07-17] MEDS ORDERED: BLOOD SUGAR DIAGNOSTIC STRIP TEST SCH (17:30)
[2018-07-17] MEDS: CHLORHEXIDINE GLUCONATE 0.12% ORAL MOUTHWASH SSP SCH ×2 (17:35→21:09)
[2018-07-17 18:00] VITALS: BP 128/71
[2018-07-17] MEDS ORDERED: INSULIN LISPRO 100 UNITS/ML SUBCUT SCH (18:00)
[2018-07-17 20:00] VITALS: BP 122/75
[2018-07-17 22:00] VITALS: BP 109/66
[2018-07-17] MEDS: BLOOD SUGAR DIAGNOSTIC STRIP TEST SCH (23:30)
[2018-07-17] MEDS: ACETYLCYSTEINE 100MG/ML 10% VIAL 4ML INH SCH (23:45)
[2018-07-18] VITALS (12 sets, daily range): BP systolic 103–128; BP diastolic 62–72
[2018-07-18] MEDS: INSULIN LISPRO 100 UNITS/ML SUBCUT SCH ×5 (00:39→23:12)
[2018-07-18] MEDS: DEXAMETHASONE 4MG/ML 1ML VIAL IV SCH ×5 (00:39→23:06)
[2018-07-18] MEDS: IPRATROPIUM/ALBUTEROL 0.5-3(2.5)MG/3ML NEB HHN SCH ×5 (03:56→20:21)
[2018-07-18] MEDS: DEXT 5%/0.45% NACL 1000ML 1,000 ML IV SCH (05:41)
[2018-07-18] MEDS: HYDRALAZINE HCL 25MG TABLET PEG SCH ×3 (05:41→22:00)
[2018-07-18] MEDS: BLOOD SUGAR DIAGNOSTIC STRIP TEST SCH ×4 (05:41→23:06)
[2018-07-18] MEDS: LEVOTHYROXINE SODIUM 88MCG TABLET PO SCH (06:53)
[2018-07-18] MEDS: ACETYLCYSTEINE 100MG/ML 10% VIAL 4ML INH SCH ×3 (08:03→20:21)
[2018-07-18] MEDS: AMLODIPINE 5MG TABLET PEG SCH (09:35)
[2018-07-18] MEDS: LEVETIRACETAM 500MG TABLET PEG SCH ×2 (09:35→20:38)
[2018-07-18] MEDS: CHLORHEXIDINE GLUCONATE 0.12% ORAL MOUTHWASH SSP SCH ×2 (09:36→20:32)
[2018-07-18 15:39] LABS: HEMATOCRIT. 22.8 % (42.0-52.0); HEMOGLOBIN. 7.9 g/dL (14.0-18.0); MEAN CORPUSCULAR HEMOGLOBIN 32.5 pg (28.0-32.0); MEAN CORPUSCULAR VOLUME 93.6 fL (80.0-94.0); PLATELET 148 x1000/uL (130-400); RED BLOOD CELL COUNT 2.44 mill/uL (4.7-6.1); RED CELL DISTRIBUTION WIDTH 17.3 % (11.6-14.6)
[2018-07-18 15:46] LABS: CHLORIDE 110 mEq/L (98-107)
[2018-07-18 16:33] LABS: PLATELET ESTIMATE NORMAL
[2018-07-19] VITALS (12 sets, daily range): BP systolic 122–158; BP diastolic 66–96
[2018-07-19] MEDS: IPRATROPIUM/ALBUTEROL 0.5-3(2.5)MG/3ML NEB HHN SCH ×6 (00:01→20:41)
[2018-07-19] MEDS: HYDRALAZINE HCL 25MG TABLET PEG SCH ×3 (05:00→21:37)
[2018-07-19] MEDS: DEXAMETHASONE 4MG/ML 1ML VIAL IV SCH ×4 (05:00→23:04)
[2018-07-19] MEDS: BLOOD SUGAR DIAGNOSTIC STRIP TEST SCH ×4 (05:01→23:13)
[2018-07-19] MEDS: INSULIN LISPRO 100 UNITS/ML SUBCUT SCH ×4 (05:05→23:13)
[2018-07-19] MEDS: ACETYLCYSTEINE 100MG/ML 10% VIAL 4ML INH SCH ×2 (08:15→16:38)
[2018-07-19] MEDS: AMLODIPINE 5MG TABLET PEG SCH (08:55)
[2018-07-19] MEDS: CHLORHEXIDINE GLUCONATE 0.12% ORAL MOUTHWASH SSP SCH ×2 (08:55→20:51)
[2018-07-19] MEDS: LEVETIRACETAM 500MG TABLET PEG SCH ×2 (08:55→20:50)
[2018-07-19] MEDS: LEVOTHYROXINE SODIUM 88MCG TABLET PO SCH (08:55)
[2018-07-19 10:54] LABS: CHLORIDE 108 mEq/L (98-107)
[2018-07-19 11:47] LABS: HEMATOCRIT. 22.5 % (42.0-52.0); HEMOGLOBIN. 7.7 g/dL (14.0-18.0); MEAN CORPUSCULAR HEMOGLOBIN 32.2 pg (28.0-32.0); MEAN CORPUSCULAR VOLUME 93.5 fL (80.0-94.0); MEAN PLATELET VOLUME 8.8 fl (7.4-10.4); PLATELET 149 x1000/uL (130-400); RED CELL DISTRIBUTION WIDTH 17.4 % (11.6-14.6)
[2018-07-19 12:13] LABS: PLATELET ESTIMATE NORMAL
[2018-07-19] MEDS: PIPERACILLIN/TAZ 3.375G PREMIX 50 ML IV SCH ×2 (18:16→23:13)
[2018-07-20] VITALS (12 sets, daily range): BP systolic 94–139; BP diastolic 39–84
[2018-07-20] MEDS: IPRATROPIUM/ALBUTEROL 0.5-3(2.5)MG/3ML NEB HHN SCH ×7 (00:27→23:46)
[2018-07-20] MEDS: ACETYLCYSTEINE 100MG/ML 10% VIAL 4ML INH SCH ×3 (00:28→23:46)
[2018-07-20] MEDS: PIPERACILLIN/TAZ 3.375G PREMIX 50 ML IV SCH ×4 (05:15→23:43)
[2018-07-20] MEDS: DEXAMETHASONE 4MG/ML 1ML VIAL IV SCH ×4 (05:15→23:43)
[2018-07-20] MEDS: HYDRALAZINE HCL 25MG TABLET PEG SCH ×3 (05:16→22:20)
[2018-07-20] MEDS: BLOOD SUGAR DIAGNOSTIC STRIP TEST SCH ×4 (05:30→23:30)
[2018-07-20] MEDS: INSULIN LISPRO 100 UNITS/ML SUBCUT SCH ×4 (05:47→23:49)
[2018-07-20] MEDS: LEVOTHYROXINE SODIUM 88MCG TABLET PO SCH (08:19)
[2018-07-20] MEDS: LEVETIRACETAM 500MG TABLET PEG SCH ×2 (08:49→20:15)
[2018-07-20] MEDS: AMLODIPINE 5MG TABLET PEG SCH (08:49)
[2018-07-20] MEDS: CHLORHEXIDINE GLUCONATE 0.12% ORAL MOUTHWASH SSP SCH ×2 (08:50→20:18)
[2018-07-21] VITALS (8 sets, daily range): BP systolic 119–151; BP diastolic 69–82
[2018-07-21] MEDS: IPRATROPIUM/ALBUTEROL 0.5-3(2.5)MG/3ML NEB HHN SCH ×3 (03:55→12:29)
[2018-07-21] MEDS: BLOOD SUGAR DIAGNOSTIC STRIP TEST SCH ×2 (04:38→12:13)
[2018-07-21] MEDS: DEXAMETHASONE 4MG/ML 1ML VIAL IV SCH ×2 (04:47→12:29)
[2018-07-21] MEDS: PIPERACILLIN/TAZ 3.375G PREMIX 50 ML IV SCH ×2 (04:47→12:29)
[2018-07-21] MEDS: INSULIN LISPRO 100 UNITS/ML SUBCUT SCH ×2 (06:00→12:00)
[2018-07-21] MEDS: HYDRALAZINE HCL 25MG TABLET PEG SCH ×2 (06:59→14:53)
[2018-07-21] MEDS: LEVOTHYROXINE SODIUM 88MCG TABLET PO SCH (07:01)
[2018-07-21] MEDS: ACETYLCYSTEINE 100MG/ML 10% VIAL 4ML INH SCH (07:46)
[2018-07-21] MEDS: LEVETIRACETAM 500MG TABLET PEG SCH (09:56)
[2018-07-21] MEDS: CHLORHEXIDINE GLUCONATE 0.12% ORAL MOUTHWASH SSP SCH (09:57)
[2018-07-21] MEDS: AMLODIPINE 5MG TABLET PEG SCH (09:57)
== END 2018-07-21 15:50 | DRG 374 ==
LOC: ER 21:27 → 5EST 07-17 00:44 → ENRESERV 07-17 09:24 → CANRESERV 07-17 09:24 → EDBEDREQSVC 07-17 10:18 → ENRESERV 07-17 11:27
PROVIDERS: ADMIT Emergency Medicine; ATTEND Emergency Medicine
PROC: 5A1955Z Respiratory Ventilation, Greater than 96 Consecutive Hours (ICD-10-PCS; 2018-07-16)
PROC: 30233N1 Transfusion of Nonautologous Red Blood Cells into Peripheral Vein, Percutaneous Approach (ICD-10-PCS; principal; 2018-07-17)
DX: C18.4 Malignant neoplasm of transverse colon (principal); N17.0 Acute kidney failure with tubular necrosis; E43 Unspecified severe protein-calorie malnutrition; J96.10 Chronic respiratory failure, unspecified whether with hypoxia or hypercapnia; K86.1 Other chronic pancreatitis; G93.40 Encephalopathy, unspecified; Z99.11 Dependence on respirator [ventilator] status; E87.5 Hyperkalemia; D50.0 Iron deficiency anemia secondary to blood loss (chronic); R13.10 Dysphagia, unspecified; D63.0 Anemia in neoplastic disease; Z66 Do not resuscitate; E11.649 Type 2 diabetes mellitus with hypoglycemia without coma; I10 Essential (primary) hypertension; G40.909 Epilepsy, unspecified, not intractable, without status epilepticus; K21.9 Gastro-esophageal reflux disease without esophagitis; R00.1 Bradycardia, unspecified; R60.9 Edema, unspecified; K76.0 Fatty (change of) liver, not elsewhere classified; F41.9 Anxiety disorder, unspecified; E03.9 Hypothyroidism, unspecified; Z87.891 Personal history of nicotine dependence; Z93.1 Gastrostomy status; Z93.0 Tracheostomy status; Z85.819 Personal history of malignant neoplasm of unspecified site of lip, oral cavity, and pharynx; Z92.3 Personal history of irradiation; Z87.820 Personal history of traumatic brain injury; Z87.01 Personal history of pneumonia (recurrent); Z68.21 Body mass index [BMI] 21.0-21.9, adult
CPT/HCPCS: 36415; 36430; 71045; 80048; 82962; 84443; 86850; 86900; 86920; 87070; 87077; 87186; 93005; 93970; 94002; 94003; 94640; 99285; J0610; J1100; J1815; J2543; J3490; J7050; J7060; J7608; J7620; P9016

== ENCOUNTER 2018-08-20 18:56 | Inpatient (IN) | payer MEDICARE, MEDICAID ==
[~2018-08-20] VITALS: Ht 172.7 cm; Wt 63.6 kg
[2018-08-20] MEDS ORDERED: SODIUM CHLORIDE 0.9% 1,800 ML IV ONE (19:20)
[2018-08-20 21:49] LABS: BASOPHILS % 0.3 % (0.0-2.0); EOSINOPHILS % 0.3 % (0.0-5.0); LYMPHOCYTES % 7.7 % (20.0-50.0); MEAN CORPUSCULAR HEMOGLOBIN 33.7 pg (28.0-32.0); MEAN CORPUSCULAR VOLUME 102.4 fL (80.0-94.0); MEAN PLATELET VOLUME 7.9 fl (7.4-10.4); MONOCYTES % 14.7 % (2.0-8.0); PLATELET 334 x1000/uL (130-400); RED BLOOD CELL COUNT 1.85 mill/uL (4.7-6.1)
[2018-08-20 21:52] LABS: CHLORIDE 115 mEq/L (98-107)
[2018-08-20 21:55] LABS: INR 1.1; PROTHROMBIN TIME 11.1 sec (9.1-11.1)
[2018-08-20 21:57] LABS: HEMOGLOBIN. 6.2 g/dL (14.0-18.0)
[2018-08-20] MEDS ORDERED: SODIUM POLYSTYRENE SULFONATE 15 G/60 ML BOT PO NR (22:15)
[2018-08-20] MEDS ORDERED: ALBUTEROL (0.083%) 2.5MG/3ML NEB HHN SCH (22:30)
[2018-08-20 22:31] LABS: CLARITY URINE CLOUDY (CLEAR); COLOR URINE YELLOW (YELLOW); KETONES URINE NEGATIVE (NEGATIVE); LEUKOCYTE ESTERASE URINE 1+ (NEGATIVE); NITRITE URINE NEGATIVE (NEGATIVE); OCCULT BLOOD URINE 3+ (NEGATIVE); PROTEIN URINE 1+ (NEGATIVE); SPECIFIC GRAVITY URINE 1.015 (1.005-1.030); UROBILINOGEN URINE 0.2 E.U./dL (0.2-1.0)
[2018-08-20] MEDS ORDERED: VANCOMYCIN 1 G PREMIX 200 ML IV SCH (23:15)
[2018-08-20] MEDS ORDERED: PIPERACILLIN/TAZOBACTAM 3.375GM/50ML PREMIX IV ONE (23:15)
[2018-08-20] MEDS ORDERED: PIPERACILLIN/TAZ 3.375G PREMIX 50 ML IV NR (23:16)
[2018-08-21] VITALS (14 sets, daily range): BP systolic 117–145; BP diastolic 68–87
[2018-08-21] MEDS ORDERED: ACETAMINOPHEN 650MG/20.3ML UDC GT PRN (08:45)
[2018-08-21] MEDS ORDERED: LORAZEPAM 0.5MG TABLET PO PRN (08:45)
[2018-08-21] MEDS ORDERED: ONDANSETRON HCL 4MG/2ML INJ IV PRN (08:45)
[2018-08-21] MEDS: PANTOPRAZOLE SODIUM 40 MG/VIAL IV SCH (09:19)
[2018-08-21] MEDS: ENOXAPARIN 40MG/0.4ML SYR SUBCUT SCH (09:19)
[2018-08-21] MEDS: IPRATROPIUM/ALBUTEROL 0.5-3(2.5)MG/3ML NEB INH PRN ×3 (11:00→20:25)
[2018-08-21] MEDS: LEVOFLOXACIN 500MG PREMIX 100 ML IV SCH (11:02)
[2018-08-21] MEDS: SODIUM CHLORIDE 0.9% INJ 3ML FLUSH IVF SCH ×2 (14:13→22:00)
[2018-08-21] MEDS ORDERED: DEXTROSE 50% WATER 50ML SYRINGE IV PRN (14:45)
[2018-08-21 17:17] LABS: HEMATOCRIT. 28.2 % (42.0-52.0); HEMOGLOBIN. 9.4 g/dL (14.0-18.0); MEAN CORPUSCULAR HEMOGLOBIN 33.2 pg (28.0-32.0); MEAN CORPUSCULAR VOLUME 99.8 fL (80.0-94.0); MEAN PLATELET VOLUME 7.4 fl (7.4-10.4); PLATELET 313 x1000/uL (130-400); RED BLOOD CELL COUNT 2.82 mill/uL (4.7-6.1); RED CELL DISTRIBUTION WIDTH 18.6 % (11.6-14.6)
[2018-08-21] MEDS ORDERED: INSULIN LISPRO 100 UNITS/ML SUBCUT SCH (18:00)
[2018-08-21] MEDS: BLOOD SUGAR DIAGNOSTIC STRIP TEST SCH ×2 (18:37→23:42)
[2018-08-21 22:07] LABS: PLATELET ESTIMATE NORMAL
[2018-08-21] MEDS: INSULIN LISPRO 100 UNITS/ML SUBCUT SCH (23:43)
[2018-08-22] VITALS (12 sets, daily range): BP systolic 121–154; BP diastolic 70–98
[2018-08-22] MEDS: IPRATROPIUM/ALBUTEROL 0.5-3(2.5)MG/3ML NEB INH PRN ×5 (04:42→20:42)
[2018-08-22] MEDS: BLOOD SUGAR DIAGNOSTIC STRIP TEST SCH ×3 (05:57→18:11)
[2018-08-22] MEDS: INSULIN LISPRO 100 UNITS/ML SUBCUT SCH ×3 (05:57→18:00)
[2018-08-22 06:26] LABS: BASOPHILS % 0.4 % (0.0-2.0); EOSINOPHILS % 0.9 % (0.0-5.0); HEMATOCRIT. 32.8 % (42.0-52.0); HEMOGLOBIN. 10.8 g/dL (14.0-18.0); LYMPHOCYTES % 15.3 % (20.0-50.0); MEAN CORPUSCULAR HEMOGLOBIN 33.1 pg (28.0-32.0); MEAN PLATELET VOLUME 7.9 fl (7.4-10.4); NEUTROPHILS % 69.4 % (40.0-76.0); PLATELET 341 x1000/uL (130-400); RED BLOOD CELL COUNT 3.25 mill/uL (4.7-6.1); RED CELL DISTRIBUTION WIDTH 18.6 % (11.6-14.6)
[2018-08-22 06:28] LABS: CHLORIDE 117 mEq/L (98-107)
[2018-08-22] MEDS: SODIUM CHLORIDE 0.9% INJ 3ML FLUSH IVF SCH ×3 (06:46→21:06)
[2018-08-22] MEDS: PANTOPRAZOLE SODIUM 40 MG/VIAL IV SCH (08:42)
[2018-08-22] MEDS: ENOXAPARIN 40MG/0.4ML SYR SUBCUT SCH (09:00)
[2018-08-22] MEDS: LEVOFLOXACIN 500MG PREMIX 100 ML IV SCH (09:23)
[2018-08-22 11:12] LABS: BG BASE EXCESS -2.8 mmol/L (-2.0-2.0); BG CARBOXYHEMOGLOBIN 0.3 % (0.5-1.5); BG DEOXYHEMOGLOBIN 2.1 % (0.0-5.0); BG FRACTION INSPIRED OXYGEN 40; BG HCO3 ACT 21.8 mmol/L (22.0-26.0); BG METHEMOGLOBIN 0.3 % (0.0-1.5); BG OXYGEN SATURATION 97.9 % (92.0-98.5); BG OXYHEMOGLOBIN 97.3 % (94.0-97.0); BG PCO2 36.7 mmHg (35.0-45.0); BG PH 7.391 (7.350-7.450); BG PO2 127.5 mmHg (75.0-100.0); BG PRESSURE SUPPORT 12; BG SAMPLE SITE LEFT BRACHIAL; BG TIDAL VOLUME(mL) 500 mL; BG TOTAL HEMOGLOBIN 9.8 g/dL (12.0-18.0); BG VENT MODE VENT - SIMV; BG VENT RATE 8 set
[2018-08-22] MEDS: AMLODIPINE 5MG TABLET PO SCH ×2 (11:40→21:05)
[2018-08-22] MEDS: LEVETIRACETAM 500MG TABLET PO SCH ×2 (11:41→21:06)
[2018-08-22] MEDS: LEVOTHYROXINE SODIUM 88MCG TABLET PO SCH (11:41)
[2018-08-22] MEDS: GUAIFENESIN 600MG ER TABLET PO SCH ×2 (11:41→21:06)
[2018-08-22] MEDS ORDERED: BLOOD SUGAR DIAGNOSTIC STRIP TEST SCH (12:00)
[2018-08-22] MEDS: HYDRALAZINE HCL 25MG TABLET PO SCH ×2 (15:40→21:06)
[2018-08-23] VITALS (12 sets, daily range): BP systolic 121–138; BP diastolic 53–79
[2018-08-23] MEDS: IPRATROPIUM/ALBUTEROL 0.5-3(2.5)MG/3ML NEB INH PRN ×3 (00:31→08:27)
[2018-08-23] MEDS: INSULIN LISPRO 100 UNITS/ML SUBCUT SCH ×4 (06:00→18:00)
[2018-08-23 06:24] LABS: BASOPHILS % 0.3 % (0.0-2.0); HEMATOCRIT. 29.1 % (42.0-52.0); HEMOGLOBIN. 9.7 g/dL (14.0-18.0); LYMPHOCYTES % 12.6 % (20.0-50.0); MEAN CORPUSCULAR HEMOGLOBIN 33.4 pg (28.0-32.0); MEAN CORPUSCULAR VOLUME 99.7 fL (80.0-94.0); MEAN PLATELET VOLUME 7.6 fl (7.4-10.4); MONOCYTES % 13.4 % (2.0-8.0); NEUTROPHILS % 72.7 % (40.0-76.0); PLATELET 326 x1000/uL (130-400); RED BLOOD CELL COUNT 2.92 mill/uL (4.7-6.1); RED CELL DISTRIBUTION WIDTH 18.2 % (11.6-14.6)
[2018-08-23 06:35] LABS: CHLORIDE 117 mEq/L (98-107)
[2018-08-23] MEDS: LEVOTHYROXINE SODIUM 88MCG TABLET PO SCH (06:35)
[2018-08-23] MEDS: HYDRALAZINE HCL 25MG TABLET PO SCH ×2 (06:35→13:44)
[2018-08-23] MEDS: BLOOD SUGAR DIAGNOSTIC STRIP TEST SCH ×4 (06:36→18:11)
[2018-08-23] MEDS: SODIUM CHLORIDE 0.9% INJ 3ML FLUSH IVF SCH ×2 (06:36→13:45)
[2018-08-23] MEDS ORDERED: LIDOCAINE HCL 1% 20ML VIAL (Pyxis) INJ ONE (09:03)
[2018-08-23] MEDS: LEVOFLOXACIN 500MG PREMIX 100 ML IV SCH (09:18)
[2018-08-23] MEDS: LEVETIRACETAM 500MG TABLET PO SCH (09:19)
[2018-08-23] MEDS: GUAIFENESIN 600MG ER TABLET PO SCH (09:19)
[2018-08-23] MEDS: PANTOPRAZOLE SODIUM 40 MG/VIAL IV SCH (09:19)
[2018-08-23] MEDS: AMLODIPINE 5MG TABLET PO SCH (09:27)
[2018-08-24] MEDS ORDERED: LEVOFLOXACIN 500MG TABLET PO SCH (11:00)
== END 2018-08-23 19:31 | DRG 871 ==
LOC: ER 18:56 → 5EST 22:48 → EDBEDREQ 22:54 → EDBEDREQSVC 22:54 → EDBEDREQTM 22:54 → ENRESERV 23:17
PROVIDERS: ADMIT Emergency Medicine; ATTEND Emergency Medicine
PROC: 5A1945Z Respiratory Ventilation, 24-96 Consecutive Hours (ICD-10-PCS; principal; 2018-08-20)
PROC: 30233N1 Transfusion of Nonautologous Red Blood Cells into Peripheral Vein, Percutaneous Approach (ICD-10-PCS; 2018-08-21)
PROC: 02HV33Z Insertion of Infusion Device into Superior Vena Cava, Percutaneous Approach (ICD-10-PCS; 2018-08-23)
PROC: B548ZZA Ultrasonography of Superior Vena Cava, Guidance (ICD-10-PCS; 2018-08-23)
DX: A41.9 Sepsis, unspecified organism (principal); J18.1 Lobar pneumonia, unspecified organism; E43 Unspecified severe protein-calorie malnutrition; J96.20 Acute and chronic respiratory failure, unspecified whether with hypoxia or hypercapnia; E87.0 Hyperosmolality and hypernatremia; G93.40 Encephalopathy, unspecified; J95.851 Ventilator associated pneumonia; K92.2 Gastrointestinal hemorrhage, unspecified; N39.0 Urinary tract infection, site not specified; Z99.11 Dependence on respirator [ventilator] status; I50.42 Chronic combined systolic (congestive) and diastolic (congestive) heart failure; C18.4 Malignant neoplasm of transverse colon; D50.0 Iron deficiency anemia secondary to blood loss (chronic); Z66 Do not resuscitate; E11.9 Type 2 diabetes mellitus without complications; E03.9 Hypothyroidism, unspecified; E87.5 Hyperkalemia; G40.909 Epilepsy, unspecified, not intractable, without status epilepticus; I11.0 Hypertensive heart disease with heart failure; J40 Bronchitis, not specified as acute or chronic; K21.9 Gastro-esophageal reflux disease without esophagitis; E05.90 Thyrotoxicosis, unspecified without thyrotoxic crisis or storm; Y84.8 Other medical procedures as the cause of abnormal reaction of the patient, or of later complication, without mention of misadventure at the time of the procedure; Z85.819 Personal history of malignant neoplasm of unspecified site of lip, oral cavity, and pharynx; Z93.0 Tracheostomy status; Z93.1 Gastrostomy status; Z86.73 Personal history of transient ischemic attack (TIA), and cerebral infarction without residual deficits; Z92.3 Personal history of irradiation; Z68.21 Body mass index [BMI] 21.0-21.9, adult; Z88.8 Allergy status to other drugs, medicaments and biological substances; Z79.1 Long term (current) use of non-steroidal anti-inflammatories (NSAID); Z79.899 Other long term (current) drug therapy; Y83.8 Other surgical procedures as the cause of abnormal reaction of the patient, or of later complication, without mention of misadventure at the time of the procedure; Y82.8 Other medical devices associated with adverse incidents
CPT/HCPCS: 36415; 36430; 36569; 36600; 71045; 76937; 80048; 82375; 82805; 82962; 83605; 83880; 84484; 86850; 86900; 86920; 93005; 93970; 94003; 94640; 96365; 99291; C1725; C9113; J1650; J1815; J1956; J2543; J3370; J3490; J7030; J7040; J7050; J7620; P9016

== ENCOUNTER 2018-09-10 08:01 | Inpatient (IN) | payer MEDICARE, MEDICAID ==
[~2018-09-10] VITALS: Ht 172.7 cm; Wt 66.5 kg
[2018-09-10] MEDS ORDERED: PIPERACILLIN/TAZ 3.375G PREMIX 50 ML IV ONE ×2 (08:30→10:30)
[2018-09-10] MEDS ORDERED: VANCOMYCIN 1 G PREMIX 200 ML IV ONE (08:30)
[2018-09-10] MEDS ORDERED: SODIUM CHLORIDE 0.9% 1000ML BAG (SEPSIS BOLUS) IV ONE (08:30)
[2018-09-10] MEDS ORDERED: ACETAMINOPHEN 650MG SUPP PR ONE (09:15)
[2018-09-10 09:27] LABS: HEMATOCRIT. 27.4 % (42.0-52.0); HEMOGLOBIN. 8.9 g/dL (14.0-18.0); MEAN CORPUSCULAR HEMOGLOBIN 32.6 pg (28.0-32.0); MEAN CORPUSCULAR VOLUME 100.7 fL (80.0-94.0); MEAN PLATELET VOLUME 8.4 fl (7.4-10.4); PLATELET 515 x1000/uL (130-400); RED BLOOD CELL COUNT 2.72 mill/uL (4.7-6.1); RED CELL DISTRIBUTION WIDTH 16.3 % (11.6-14.6)
[2018-09-10 09:31] LABS: CHLORIDE 114 mEq/L (98-107)
[2018-09-10 09:33] LABS: BG BASE EXCESS -0.9 mmol/L (-2.0-2.0); BG CARBOXYHEMOGLOBIN 0.1 % (0.5-1.5); BG DEOXYHEMOGLOBIN 4.1 % (0.0-5.0); BG FRACTION INSPIRED OXYGEN 40; BG HCO3 ACT 23.4 mmol/L (22.0-26.0); BG METHEMOGLOBIN 0.2 % (0.0-1.5); BG OXYGEN SATURATION 95.9 % (92.0-98.5); BG OXYHEMOGLOBIN 95.6 % (94.0-97.0); BG PH 7.418 (7.350-7.450); BG PO2 81.1 mmHg (75.0-100.0); BG PRESSURE SUPPORT 12; BG SAMPLE SITE LEFT BRACHIAL; BG TIDAL VOLUME(mL) 500 mL; BG TOTAL HEMOGLOBIN 8.8 g/dL (12.0-18.0); BG VENT MODE VENT - SIMV; BG VENT RATE 14 set
[2018-09-10 09:39] LABS: INR 1.1; PARTIAL THROMBOPLASTIN TIME 29.9 sec (23.4-31.0); PROTHROMBIN TIME 11.5 sec (9.1-11.1)
[2018-09-10] MEDS ORDERED: LEVOFLOXACIN 500MG PREMIX 100 ML IV ONE (10:30)
[2018-09-10] MEDS ORDERED: SODIUM POLYSTYRENE SULFONATE 15 G/60 ML BOT GT ONE (10:30)
[2018-09-10 11:12] LABS: PLATELET ESTIMATE INCREASED
[2018-09-10] MEDS ORDERED: DOCUSATE SODIUM 100MG CAPSULE PO PRN (12:15)
[2018-09-10] MEDS ORDERED: IPRATROPIUM/ALBUTEROL 0.5-3(2.5)MG/3ML NEB INH PRN (12:15)
[2018-09-10] MEDS ORDERED: PANTOPRAZOLE SODIUM 40 MG/VIAL IV SCH (12:15)
[2018-09-10] MEDS ORDERED: SODIUM CHLORIDE 0.9% 1,000 ML IV SCH (12:15)
[2018-09-10] MEDS ORDERED: CLONIDINE 0.1MG TABLET PO PRN (12:15)
[2018-09-10] MEDS ORDERED: PIPERACILLIN/TAZ 3.375G PREMIX 50 ML IV SCH (12:15)
[2018-09-10] MEDS ORDERED: ACETAMINOPHEN 325MG TABLET PO PRN (12:15)
[2018-09-10 17:08] LABS: CLARITY URINE CLEAR (CLEAR); COLOR URINE YELLOW (YELLOW); KETONES URINE NEGATIVE (NEGATIVE); LEUKOCYTE ESTERASE URINE 2+ (NEGATIVE); NITRITE URINE NEGATIVE (NEGATIVE); OCCULT BLOOD URINE 3+ (NEGATIVE); PH URINE 6.5 (4.5-8.0); PROTEIN URINE 1+ (NEGATIVE); SPECIFIC GRAVITY URINE 1.014 (1.005-1.030); UROBILINOGEN URINE 0.2 E.U./dL (0.2-1.0)
[2018-09-10 17:34] LABS: T4 FREE 0.86 ng/dL (0.76-1.46)
[2018-09-10 17:47] LABS: *BARBITURATES SCREEN URINE NEGATIVE (NEGATIVE)
[2018-09-10 17:48] LABS: *AMPHETAMINES SCREEN URINE NEGATIVE (NEGATIVE); *BENZODIAZEPINES SCREEN URINE NEGATIVE (NEGATIVE); METHADONE URINE SCREEN NEGATIVE (NEGATIVE); OPIATES URINE SCREEN NEGATIVE (NEGATIVE)
[2018-09-10 17:49] LABS: CANNABINOID URINE SCREEN NEGATIVE (NEGATIVE); PHENCYCLIDINE URINE SCREEN NEGATIVE (NEGATIVE)
[2018-09-10 17:57] LABS: *COCAINE SCREEN URINE NEGATIVE (NEGATIVE)
[2018-09-10 18:00] VITALS: BP 112/66
[2018-09-10 19:27] VITALS: BP 112/64
[2018-09-10 20:00] VITALS: BP 126/77
[2018-09-10] MEDS: IPRATROPIUM/ALBUTEROL 0.5-3(2.5)MG/3ML NEB HHN SCH (20:05)
[2018-09-10] MEDS ORDERED: VANCOMYCIN 1 G PREMIX 200 ML IV NR (21:00)
[2018-09-10] MEDS: PIPERACILLIN/TAZ 3.375G PREMIX 50 ML IV SCH (21:08)
[2018-09-10] MEDS: SODIUM CHLORIDE 0.9% 1,000 ML IV SCH (21:08)
[2018-09-10] MEDS: PANTOPRAZOLE SODIUM 40 MG/VIAL IV SCH (21:09)
[2018-09-10 22:00] VITALS: BP 118/77
[2018-09-11] VITALS (12 sets, daily range): BP systolic 104–133; BP diastolic 55–89
[2018-09-11] MEDS: ACETYLCYSTEINE 100MG/ML 10% VIAL 4ML INH SCH ×3 (00:28→16:00)
[2018-09-11] MEDS: IPRATROPIUM/ALBUTEROL 0.5-3(2.5)MG/3ML NEB HHN SCH ×6 (00:29→20:43)
[2018-09-11] MEDS: PIPERACILLIN/TAZ 3.375G PREMIX 50 ML IV SCH ×4 (01:22→17:36)
[2018-09-11 08:17] LABS: BASOPHILS % 0.4 % (0.0-2.0); EOSINOPHILS % 1.3 % (0.0-5.0); HEMATOCRIT. 25.9 % (42.0-52.0); HEMOGLOBIN. 8.6 g/dL (14.0-18.0); LYMPHOCYTES % 9.2 % (20.0-50.0); MEAN CORPUSCULAR HEMOGLOBIN 34.4 pg (28.0-32.0); MEAN CORPUSCULAR VOLUME 104.1 fL (80.0-94.0); MEAN PLATELET VOLUME 8.2 fl (7.4-10.4); NEUTROPHILS % 77.1 % (40.0-76.0); PLATELET 445 x1000/uL (130-400); RED BLOOD CELL COUNT 2.49 mill/uL (4.7-6.1); RED CELL DISTRIBUTION WIDTH 16.8 % (11.6-14.6)
[2018-09-11 08:59] LABS: CHLORIDE 118 mEq/L (98-107)
[2018-09-11] MEDS ORDERED: VANCOMYCIN 750 MG PREMIX 150 ML IV SCH (09:00)
[2018-09-11 09:09] LABS: PHOSPHORUS 3.7 mg/dL (2.5-4.9)
[2018-09-11] MEDS: PANTOPRAZOLE SODIUM 40 MG/VIAL IV SCH (09:23)
[2018-09-11] MEDS: SODIUM CHLORIDE 0.9% 1,000 ML IV SCH (10:40)
[2018-09-11] MEDS: LEVOTHYROXINE SODIUM 88MCG TABLET PO SCH (18:30)
[2018-09-11] MEDS: LEVETIRACETAM 500MG/5ML CUP PO SCH (18:30)
[2018-09-11] MEDS: FERROUS SULFATE 325MG TABLET PO SCH (18:30)
[2018-09-11] MEDS ORDERED: SODIUM POLYSTYRENE SULFONATE 15 G/60 ML BOT PO NR (20:00)
[2018-09-11] MEDS ORDERED: FAMOTIDINE 20MG/2ML VIAL IV SCH (21:00)
[2018-09-11] MEDS: AMLODIPINE 5MG TABLET PO SCH (21:00)
[2018-09-11] MEDS: VANCOMYCIN 1 G PREMIX 200 ML IV SCH (22:07)
[2018-09-12] VITALS (12 sets, daily range): BP systolic 105–135; BP diastolic 65–74
[2018-09-12] MEDS: PIPERACILLIN/TAZ 3.375G PREMIX 50 ML IV SCH ×5 (00:42→23:56)
[2018-09-12] MEDS: IPRATROPIUM/ALBUTEROL 0.5-3(2.5)MG/3ML NEB HHN SCH ×6 (00:49→20:30)
[2018-09-12] MEDS: ACETYLCYSTEINE 100MG/ML 10% VIAL 4ML INH SCH ×3 (00:50→14:00)
[2018-09-12] MEDS: SODIUM CHLORIDE 0.9% 1,000 ML IV SCH ×2 (03:20→20:00)
[2018-09-12] MEDS: LEVETIRACETAM 500MG/5ML CUP PO SCH ×2 (06:10→18:29)
[2018-09-12 06:52] LABS: HEMATOCRIT. 29.4 % (42.0-52.0); HEMOGLOBIN. 9.3 g/dL (14.0-18.0); MEAN CORPUSCULAR HEMOGLOBIN 33.5 pg (28.0-32.0); MEAN CORPUSCULAR VOLUME 105.4 fL (80.0-94.0); MEAN PLATELET VOLUME 8.3 fl (7.4-10.4); PLATELET 425 x1000/uL (130-400); RED BLOOD CELL COUNT 2.79 mill/uL (4.7-6.1); RED CELL DISTRIBUTION WIDTH 16.8 % (11.6-14.6)
[2018-09-12] MEDS: LEVOTHYROXINE SODIUM 88MCG TABLET PO SCH (07:30)
[2018-09-12 09:48] LABS: PLATELET ESTIMATE SLIGHTLY INCREASED
[2018-09-12] MEDS: AMLODIPINE 5MG TABLET PO SCH ×2 (10:22→21:26)
[2018-09-12] MEDS: PANTOPRAZOLE SODIUM 40 MG/VIAL IV SCH (10:23)
[2018-09-12] MEDS: FERROUS SULFATE 325MG TABLET PO SCH ×3 (10:23→18:29)
[2018-09-12] MEDS: VANCOMYCIN 1 G PREMIX 200 ML IV SCH (10:33)
[2018-09-12 17:21] LABS: CHLORIDE 120 mEq/L (98-107)
[2018-09-13] VITALS (18 sets, daily range): BP systolic 124–141; BP diastolic 67–81
[2018-09-13] MEDS: ACETYLCYSTEINE 100MG/ML 10% VIAL 4ML INH SCH ×3 (00:17→14:00)
[2018-09-13] MEDS: IPRATROPIUM/ALBUTEROL 0.5-3(2.5)MG/3ML NEB HHN SCH ×6 (00:17→20:22)
[2018-09-13 05:38] LABS: BASOPHILS % 0.2 % (0.0-2.0); EOSINOPHILS % 1.2 % (0.0-5.0); HEMOGLOBIN. 7.3 g/dL (14.0-18.0); LYMPHOCYTES % 10.1 % (20.0-50.0); MEAN CORPUSCULAR HEMOGLOBIN 33.6 pg (28.0-32.0); MEAN CORPUSCULAR VOLUME 100.9 fL (80.0-94.0); MEAN PLATELET VOLUME 7.8 fl (7.4-10.4); MONOCYTES % 13.7 % (2.0-8.0); NEUTROPHILS % 74.8 % (40.0-76.0); PLATELET 416 x1000/uL (130-400); RED BLOOD CELL COUNT 2.18 mill/uL (4.7-6.1); RED CELL DISTRIBUTION WIDTH 16.5 % (11.6-14.6)
[2018-09-13] MEDS: PIPERACILLIN/TAZ 3.375G PREMIX 50 ML IV SCH ×4 (06:01→23:37)
[2018-09-13] MEDS: LEVETIRACETAM 500MG/5ML CUP PO SCH ×2 (06:01→18:09)
[2018-09-13 06:03] LABS: CHLORIDE 119 mEq/L (98-107)
[2018-09-13] MEDS: PANTOPRAZOLE SODIUM 40 MG/VIAL IV SCH (08:39)
[2018-09-13] MEDS: LEVOTHYROXINE SODIUM 88MCG TABLET PO SCH (08:40)
[2018-09-13] MEDS: FERROUS SULFATE 325MG TABLET PO SCH ×3 (08:40→18:09)
[2018-09-13] MEDS: AMLODIPINE 5MG TABLET PO SCH ×2 (08:40→20:48)
[2018-09-13] MEDS: VANCOMYCIN 1 G PREMIX 200 ML IV SCH (11:45)
[2018-09-13] MEDS: SODIUM CHLORIDE 0.9% 1,000 ML IV SCH (13:18)
[2018-09-14] VITALS (13 sets, daily range): BP systolic 116–143; BP diastolic 72–87
[2018-09-14] MEDS: ACETYLCYSTEINE 100MG/ML 10% VIAL 4ML INH SCH ×3 (00:29→15:40)
[2018-09-14] MEDS: IPRATROPIUM/ALBUTEROL 0.5-3(2.5)MG/3ML NEB HHN SCH ×6 (00:31→19:47)
[2018-09-14] MEDS: SODIUM CHLORIDE 0.9% 1,000 ML IV SCH ×2 (05:21→11:37)
[2018-09-14] MEDS: PIPERACILLIN/TAZ 3.375G PREMIX 50 ML IV SCH ×3 (05:23→18:34)
[2018-09-14] MEDS: LEVETIRACETAM 500MG/5ML CUP PO SCH ×2 (05:26→18:35)
[2018-09-14 06:28] LABS: BASOPHILS % 0.1 % (0.0-2.0); EOSINOPHILS % 1.8 % (0.0-5.0); HEMOGLOBIN. 9.1 g/dL (14.0-18.0); LYMPHOCYTES % 8.5 % (20.0-50.0); MEAN CORPUSCULAR HEMOGLOBIN 33.3 pg (28.0-32.0); MEAN CORPUSCULAR VOLUME 98.5 fL (80.0-94.0); MEAN PLATELET VOLUME 7.4 fl (7.4-10.4); MONOCYTES % 12.3 % (2.0-8.0); NEUTROPHILS % 77.3 % (40.0-76.0); PLATELET 405 x1000/uL (130-400); RED BLOOD CELL COUNT 2.74 mill/uL (4.7-6.1); RED CELL DISTRIBUTION WIDTH 16.3 % (11.6-14.6)
[2018-09-14] MEDS: LEVOTHYROXINE SODIUM 88MCG TABLET PO SCH (06:36)
[2018-09-14 06:40] LABS: CHLORIDE 117 mEq/L (98-107)
[2018-09-14] MEDS: FERROUS SULFATE 325MG TABLET PO SCH ×3 (07:53→18:34)
[2018-09-14] MEDS: VANCOMYCIN 1 G PREMIX 200 ML IV SCH (09:47)
[2018-09-14] MEDS: AMLODIPINE 5MG TABLET PO SCH ×2 (09:47→20:02)
[2018-09-14] MEDS: PANTOPRAZOLE SODIUM 40 MG/VIAL IV SCH (09:47)
== END 2018-09-14 23:45 | DRG 870 ==
LOC: ER 08:16 → 5EST 10:18 → EDBEDREQTM 10:20 → EDBEDREQ 10:20 → ENRESERV 15:33
PROVIDERS: ADMIT Family Medicine Adult Medicine; ATTEND Family Medicine Adult Medicine
PROC: 5A1955Z Respiratory Ventilation, Greater than 96 Consecutive Hours (ICD-10-PCS; principal; 2018-09-10)
PROC: 30233N1 Transfusion of Nonautologous Red Blood Cells into Peripheral Vein, Percutaneous Approach (ICD-10-PCS; 2018-09-13)
DX: A41.9 Sepsis, unspecified organism (principal); J18.9 Pneumonia, unspecified organism; E43 Unspecified severe protein-calorie malnutrition; J96.20 Acute and chronic respiratory failure, unspecified whether with hypoxia or hypercapnia; E87.0 Hyperosmolality and hypernatremia; I13.0 Hypertensive heart and chronic kidney disease with heart failure and stage 1 through stage 4 chronic kidney disease, or unspecified chronic kidney disease; N39.0 Urinary tract infection, site not specified; C18.9 Malignant neoplasm of colon, unspecified; Z99.11 Dependence on respirator [ventilator] status; E03.9 Hypothyroidism, unspecified; E11.22 Type 2 diabetes mellitus with diabetic chronic kidney disease; E87.5 Hyperkalemia; D64.9 Anemia, unspecified; R65.20 Severe sepsis without septic shock; B95.2 Enterococcus as the cause of diseases classified elsewhere; Z16.21 Resistance to vancomycin; G40.909 Epilepsy, unspecified, not intractable, without status epilepticus; I50.9 Heart failure, unspecified; K21.9 Gastro-esophageal reflux disease without esophagitis; N18.9 Chronic kidney disease, unspecified; Z51.5 Encounter for palliative care; Z66 Do not resuscitate; Z79.899 Other long term (current) drug therapy; Z85.819 Personal history of malignant neoplasm of unspecified site of lip, oral cavity, and pharynx; Z87.820 Personal history of traumatic brain injury; Z92.3 Personal history of irradiation; Z93.0 Tracheostomy status; Z93.1 Gastrostomy status; Z68.22 Body mass index [BMI] 22.0-22.9, adult; Z91.011 Allergy to milk products
CPT/HCPCS: 36415; 36600; 71045; 80048; 80202; 80305; 82375; 82805; 83605; 83735; 83880; 84100; 84132; 84145; 84439; 84443; 84484; 86850; 86900; 86920; 87070; 87077; 87186; 87804; 93005; 93970; 94002; 94003; 94640; 96361; 96374; 97162; 97167; 99285; C9113; J1956; J2543; J3370; J7030; J7050; J7608; J7620; P9016; A4315

== ENCOUNTER 2018-10-29 22:12 | Emergency (ER) | payer MEDICARE, MEDICAID ==
[~2018-10-29] VITALS: Ht 185.4 cm; Wt 50.0 kg
[2018-10-30] MEDS ORDERED: SODIUM CHLORIDE 0.9% 1,000 ML IV ONE (00:09)
[2018-10-30 00:44] LABS: EOSINOPHILS % 11.5 % (0.0-5.0); HEMATOCRIT. 27.7 % (42.0-52.0); HEMOGLOBIN. 9.5 g/dL (14.0-18.0); LYMPHOCYTES % 12.6 % (20.0-50.0); MEAN CORPUSCULAR HEMOGLOBIN 33.2 pg (28.0-32.0); MEAN CORPUSCULAR VOLUME 96.5 fL (80.0-94.0); MONOCYTES % 8.7 % (2.0-8.0); NEUTROPHILS % 66.2 % (40.0-76.0); PLATELET 441 x1000/uL (130-400); RED BLOOD CELL COUNT 2.87 mill/uL (4.7-6.1); RED CELL DISTRIBUTION WIDTH 15.4 % (11.6-14.6)
[2018-10-30 00:52] LABS: CHLORIDE 101 mEq/L (98-107)
[2018-10-30 04:32] VITALS: BP 123/78
== END 2018-10-30 04:37 | disposition home or self-care (01) ==
LOC: ER 22:12 → CANBEDREQ 10-30 05:53
DX: E78.5 Hyperlipidemia, unspecified (principal); M62.469 Contracture of muscle, unspecified lower leg; R64 Cachexia; Z68.1 Body mass index [BMI] 19.9 or less, adult; K21.9 Gastro-esophageal reflux disease without esophagitis; E03.9 Hypothyroidism, unspecified; I10 Essential (primary) hypertension; E11.9 Type 2 diabetes mellitus without complications; B19.20 Unspecified viral hepatitis C without hepatic coma; Z79.899 Other long term (current) drug therapy; Z93.1 Gastrostomy status; Z93.0 Tracheostomy status
CPT/HCPCS: 36415; 71045; 80053; 85025; 93005; 99284; J7030

== ENCOUNTER 2018-11-14 20:43 | Inpatient (IN) | payer MEDICARE, MEDICAID ==
[~2018-11-14] VITALS: Ht 172.7 cm; Wt 49.0 kg
[2018-11-14] MEDS ORDERED: VANCOMYCIN 1 G PREMIX 200 ML IV ONE (21:30)
[2018-11-14] MEDS ORDERED: PIPERACILLIN/TAZ 3.375G PREMIX 50 ML IV ONE (21:30)
[2018-11-14] MEDS ORDERED: SODIUM CHLORIDE 0.9% 1000ML BAG (SEPSIS BOLUS) IV ONE (21:30)
[2018-11-14 21:56] LABS: HEMATOCRIT. 27.3 % (42.0-52.0); HEMOGLOBIN. 8.8 g/dL (14.0-18.0); MEAN CORPUSCULAR HEMOGLOBIN 33.1 pg (28.0-32.0); MEAN CORPUSCULAR VOLUME 102.2 fL (80.0-94.0); MEAN PLATELET VOLUME 7.3 fl (7.4-10.4); PLATELET 544 x1000/uL (130-400); RED BLOOD CELL COUNT 2.67 mill/uL (4.7-6.1); RED CELL DISTRIBUTION WIDTH 16.1 % (11.6-14.6)
[2018-11-14 21:59] LABS: CHLORIDE 125 mEq/L (98-107)
[2018-11-14 22:00] LABS: INR 1.3; PROTHROMBIN TIME 12.9 sec (9.1-11.1)
[2018-11-14 22:18] LABS: PLATELET ESTIMATE INCREASED
[2018-11-15 04:00] VITALS: BP 106/67
[2018-11-15] MEDS ORDERED: ACETAMINOPHEN 325MG TABLET PO PRN (08:00)
[2018-11-15 08:31] VITALS: BP 96/64
[2018-11-15] MEDS ORDERED: MEDICATION NOT ON FORMULARY EA (Famotidine 1 TAB) PEG SCH (09:00)
[2018-11-15] MEDS: IPRATROPIUM/ALBUTEROL 0.5-3(2.5)MG/3ML NEB HHN PRN (09:53)
[2018-11-15] MEDS: LEVETIRACETAM 500MG TABLET PEG SCH ×2 (10:12→20:57)
[2018-11-15] MEDS: LEVOTHYROXINE SODIUM 88MCG TABLET PO SCH (10:12)
[2018-11-15] MEDS: FAMOTIDINE 20MG TABLET PEG SCH (10:13)
[2018-11-15] MEDS: DEXT 5%/0.2% NACL 1,000 ML IV SCH ×2 (10:18→20:57)
[2018-11-15] MEDS: BLOOD SUGAR DIAGNOSTIC STRIP TEST SCH ×2 (12:00→18:00)
[2018-11-15 12:11] VITALS: BP 104/63
[2018-11-15] MEDS ORDERED: VANCOMYCIN 750 MG PREMIX 150 ML IV NR ×2 (14:00→17:30)
[2018-11-15] MEDS: IPRATROPIUM/ALBUTEROL 0.5-3(2.5)MG/3ML NEB HHN SCH ×2 (14:24→20:06)
[2018-11-15] MEDS: PIPERACILLIN/TAZ 3.375G PREMIX 50 ML IV SCH ×2 (14:41→20:56)
[2018-11-15] MEDS ORDERED: DIATR MEGLU/DIATRIZOATE SOLN 30ML PO SCH (15:30)
[2018-11-15] MEDS ORDERED: ONDANSETRON HCL 4MG/2ML INJ IV PRN (15:45)
[2018-11-15] MEDS ORDERED: DEXTROSE 50% WATER 50ML SYRINGE IV PRN (15:45)
[2018-11-15 16:10] VITALS: BP 92/63
[2018-11-15 18:57] LABS: CLARITY URINE CLOUDY (CLEAR); COLOR URINE YELLOW (YELLOW); KETONES URINE NEGATIVE (NEGATIVE); LEUKOCYTE ESTERASE URINE 2+ (NEGATIVE); NITRITE URINE NEGATIVE (NEGATIVE); OCCULT BLOOD URINE 3+ (NEGATIVE); PROTEIN URINE TRACE (NEGATIVE); SPECIFIC GRAVITY URINE 1.018 (1.005-1.030); UROBILINOGEN URINE 0.2 E.U./dL (0.2-1.0)
[2018-11-15 20:17] VITALS: BP 100/66
[2018-11-15] MEDS: GUAIFENESIN 200MG/10ML SUGAR FREE UDC PO SCH (20:57)
[2018-11-15] MEDS ORDERED: GUAIFENESIN 600MG ER TABLET PO SCH (21:00)
[2018-11-16] VITALS (10 sets, daily range): BP systolic 94–118; BP diastolic 56–76
[2018-11-16] MEDS: IPRATROPIUM/ALBUTEROL 0.5-3(2.5)MG/3ML NEB HHN SCH ×3 (02:10→22:52)
[2018-11-16] MEDS: PIPERACILLIN/TAZ 3.375G PREMIX 50 ML IV SCH ×4 (02:50→20:36)
[2018-11-16] MEDS: VANCOMYCIN 500 MG PREMIX 100 ML IV SCH ×2 (04:25→17:57)
[2018-11-16] MEDS: BLOOD SUGAR DIAGNOSTIC STRIP TEST SCH ×5 (06:15→23:58)
[2018-11-16] MEDS: LEVOTHYROXINE SODIUM 88MCG TABLET PO SCH (06:29)
[2018-11-16 06:30] LABS: HEMATOCRIT. 22.8 % (42.0-52.0); HEMOGLOBIN. 7.2 g/dL (14.0-18.0); MEAN CORPUSCULAR HEMOGLOBIN 33.4 pg (28.0-32.0); MEAN CORPUSCULAR VOLUME 105.2 fL (80.0-94.0); MEAN PLATELET VOLUME 7.7 fl (7.4-10.4); PLATELET 470 x1000/uL (130-400); RED BLOOD CELL COUNT 2.17 mill/uL (4.7-6.1); RED CELL DISTRIBUTION WIDTH 16.6 % (11.6-14.6)
[2018-11-16 06:45] LABS: CHLORIDE 126 mEq/L (98-107)
[2018-11-16 06:52] LABS: AMYLASE 28 IU/L (25-115); PHOSPHORUS 3.5 mg/dL (2.5-4.9)
[2018-11-16 06:55] LABS: CREATINE KINASE 21 IU/L (39-308)
[2018-11-16 06:56] LABS: T4 FREE 1.05 ng/dL (0.76-1.46)
[2018-11-16] MEDS ORDERED: LEVOTHYROXINE SODIUM 88MCG TABLET PO SCH (07:20)
[2018-11-16] MEDS: IPRATROPIUM/ALBUTEROL 0.5-3(2.5)MG/3ML NEB HHN PRN (08:36)
[2018-11-16] MEDS: GUAIFENESIN 200MG/10ML SUGAR FREE UDC PO SCH ×2 (09:00→20:36)
[2018-11-16] MEDS: FAMOTIDINE 20MG TABLET PEG SCH (09:17)
[2018-11-16] MEDS: LEVETIRACETAM 500MG TABLET PEG SCH ×2 (09:17→20:36)
[2018-11-16] MEDS: DEXTROSE 5% WATER 1,000 ML IV SCH ×2 (13:54→22:04)
[2018-11-16 13:55] LABS: PLATELET ESTIMATE SLIGHTLY INCREASED
[2018-11-17] VITALS (7 sets, daily range): BP systolic 100–117; BP diastolic 54–75
[2018-11-17] MEDS: PIPERACILLIN/TAZ 3.375G PREMIX 50 ML IV SCH ×2 (01:36→08:51)
[2018-11-17] MEDS: ACETYLCYSTEINE 100MG/ML 10% VIAL 4ML INH SCH (02:30)
[2018-11-17] MEDS: VANCOMYCIN 500 MG PREMIX 100 ML IV SCH ×2 (04:01→18:49)
[2018-11-17] MEDS: BLOOD SUGAR DIAGNOSTIC STRIP TEST SCH ×3 (05:11→17:53)
[2018-11-17 05:22] LABS: CHLORIDE 125 mEq/L (98-107)
[2018-11-17 05:30] LABS: VANCOMYCIN TROUGH 22.2 ug/mL (5.0-10.0)
[2018-11-17] MEDS: IPRATROPIUM/ALBUTEROL 0.5-3(2.5)MG/3ML NEB HHN SCH ×4 (05:31→20:47)
[2018-11-17] MEDS: LEVOTHYROXINE SODIUM 88MCG TABLET PO SCH (06:25)
[2018-11-17 08:06] LABS: HEMOGLOBIN. 9.6 g/dL (14.0-18.0); MEAN CORPUSCULAR HEMOGLOBIN 31.9 pg (28.0-32.0); MEAN CORPUSCULAR VOLUME 100.2 fL (80.0-94.0); MEAN PLATELET VOLUME 8.2 fl (7.4-10.4); PLATELET 481 x1000/uL (130-400); RED CELL DISTRIBUTION WIDTH 19.6 % (11.6-14.6)
[2018-11-17] MEDS: GUAIFENESIN 200MG/10ML SUGAR FREE UDC PO SCH ×2 (08:47→20:58)
[2018-11-17] MEDS: FAMOTIDINE 20MG TABLET PEG SCH (08:47)
[2018-11-17] MEDS: LEVETIRACETAM 500MG TABLET PEG SCH ×2 (08:47→20:59)
[2018-11-17 11:24] LABS: PLATELET ESTIMATE INCREASED
[2018-11-17] MEDS: DEXTROSE 5% WATER 1,000 ML IV SCH ×2 (12:37→23:03)
[2018-11-17] MEDS: MEROPENEM 500 MG in SODIUM CHLORIDE 0.9% 50 ML IV SCH ×2 (15:27→21:00)
[2018-11-18] VITALS: BP 110/72
[2018-11-18] MEDS: BLOOD SUGAR DIAGNOSTIC STRIP TEST SCH ×4 (00:31→17:40)
[2018-11-18] MEDS: IPRATROPIUM/ALBUTEROL 0.5-3(2.5)MG/3ML NEB HHN SCH ×2 (02:30→19:47)
[2018-11-18 04:00] VITALS: BP 108/75
[2018-11-18] MEDS: MEROPENEM 500 MG in SODIUM CHLORIDE 0.9% 50 ML IV SCH ×3 (05:12→22:07)
[2018-11-18] MEDS: LEVOTHYROXINE SODIUM 88MCG TABLET PO SCH (06:21)
[2018-11-18 07:41] LABS: CHLORIDE 119 mEq/L (98-107)
[2018-11-18 08:00] VITALS: BP 136/85
[2018-11-18] MEDS: GUAIFENESIN 200MG/10ML SUGAR FREE UDC PO SCH ×2 (09:20→22:07)
[2018-11-18] MEDS: LEVETIRACETAM 500MG TABLET PEG SCH ×2 (09:20→22:07)
[2018-11-18] MEDS: FAMOTIDINE 20MG TABLET PEG SCH (09:20)
[2018-11-18] MEDS: DEXTROSE 5% WATER 1,000 ML IV SCH (09:43)
[2018-11-18 09:55] LABS: HEMATOCRIT. 30.3 % (42.0-52.0); HEMOGLOBIN. 10.1 g/dL (14.0-18.0); MEAN CORPUSCULAR HEMOGLOBIN 33.1 pg (28.0-32.0); MEAN CORPUSCULAR VOLUME 99.2 fL (80.0-94.0); MEAN PLATELET VOLUME 8.3 fl (7.4-10.4); PLATELET 492 x1000/uL (130-400); RED BLOOD CELL COUNT 3.06 mill/uL (4.7-6.1); RED CELL DISTRIBUTION WIDTH 18.9 % (11.6-14.6)
[2018-11-18 12:00] VITALS: BP 100/71
[2018-11-18] MEDS: VANCOMYCIN 750 MG PREMIX 150 ML IV SCH (14:09)
[2018-11-18 15:33] LABS: PLATELET ESTIMATE INCREASED
[2018-11-18 16:00] VITALS: BP 119/75
[2018-11-18 20:00] VITALS: BP 125/74
[2018-11-18] MEDS: ACETYLCYSTEINE 100MG/ML 10% VIAL 4ML INH SCH (21:44)
[2018-11-19] VITALS: BP 128/74
[2018-11-19] MEDS: IPRATROPIUM/ALBUTEROL 0.5-3(2.5)MG/3ML NEB HHN SCH ×3 (00:05→21:11)
[2018-11-19 04:00] VITALS: BP 124/70
[2018-11-19] MEDS: DEXTROSE 5% WATER 1,000 ML IV SCH (04:39)
[2018-11-19] MEDS: MEROPENEM 500 MG in SODIUM CHLORIDE 0.9% 50 ML IV SCH ×3 (05:28→21:57)
[2018-11-19] MEDS: BLOOD SUGAR DIAGNOSTIC STRIP TEST SCH ×3 (06:00→12:00)
[2018-11-19 06:13] LABS: HEMATOCRIT. 26.4 % (42.0-52.0); HEMOGLOBIN. 8.6 g/dL (14.0-18.0); MEAN CORPUSCULAR HEMOGLOBIN 31.8 pg (28.0-32.0); MEAN CORPUSCULAR VOLUME 97.6 fL (80.0-94.0); MEAN PLATELET VOLUME 8.2 fl (7.4-10.4); PLATELET 494 x1000/uL (130-400); RED CELL DISTRIBUTION WIDTH 17.2 % (11.6-14.6)
[2018-11-19] MEDS: LEVOTHYROXINE SODIUM 88MCG TABLET PO SCH (06:27)
[2018-11-19 07:31] LABS: CHLORIDE 111 mEq/L (98-107)
[2018-11-19 08:52] VITALS: BP 128/75
[2018-11-19] MEDS: LEVETIRACETAM 500MG TABLET PEG SCH ×2 (09:31→21:57)
[2018-11-19] MEDS: GUAIFENESIN 200MG/10ML SUGAR FREE UDC PO SCH ×2 (09:32→21:57)
[2018-11-19] MEDS: FAMOTIDINE 20MG TABLET PEG SCH (09:33)
[2018-11-19] MEDS: SODIUM CHLORIDE 0.45% 1,000 ML IV SCH (10:01)
[2018-11-19 10:53] LABS: PLATELET ESTIMATE INCREASED
[2018-11-19] MEDS: ACETYLCYSTEINE 100MG/ML 10% VIAL 4ML INH SCH (13:40)
[2018-11-19] MEDS: VANCOMYCIN 750 MG PREMIX 150 ML IV SCH (13:45)
[2018-11-19 16:39] VITALS: BP 123/77
[2018-11-19 20:00] VITALS: BP 120/74
[2018-11-20] VITALS: BP 119/73
[2018-11-20] MEDS ORDERED: TEMAZEPAM 15MG CAPSULE PO PRN (01:45)
[2018-11-20] MEDS: SODIUM CHLORIDE 0.45% 1,000 ML IV SCH (01:57)
[2018-11-20] MEDS: ACETYLCYSTEINE 100MG/ML 10% VIAL 4ML INH SCH ×3 (02:27→20:54)
[2018-11-20] MEDS: IPRATROPIUM/ALBUTEROL 0.5-3(2.5)MG/3ML NEB HHN SCH ×5 (02:27→20:48)
[2018-11-20 04:00] VITALS: BP 110/68
[2018-11-20] MEDS: LEVOTHYROXINE SODIUM 88MCG TABLET PO SCH (05:42)
[2018-11-20] MEDS: MEROPENEM 500 MG in SODIUM CHLORIDE 0.9% 50 ML IV SCH ×3 (05:42→21:43)
[2018-11-20 06:39] LABS: CHLORIDE 111 mEq/L (98-107)
[2018-11-20 06:52] LABS: BASOPHILS % 0.6 % (0.0-2.0); EOSINOPHILS % 2.8 % (0.0-5.0); HEMATOCRIT. 36.4 % (42.0-52.0); HEMOGLOBIN. 11.8 g/dL (14.0-18.0); LYMPHOCYTES % 7.4 % (20.0-50.0); MEAN CORPUSCULAR HEMOGLOBIN 32.6 pg (28.0-32.0); MEAN CORPUSCULAR VOLUME 100.9 fL (80.0-94.0); MEAN PLATELET VOLUME 8.6 fl (7.4-10.4); MONOCYTES % 5.7 % (2.0-8.0); NEUTROPHILS % 83.5 % (40.0-76.0); PLATELET 291 x1000/uL (130-400); RED BLOOD CELL COUNT 3.61 mill/uL (4.7-6.1); RED CELL DISTRIBUTION WIDTH 17.3 % (11.6-14.6)
[2018-11-20 08:00] VITALS: BP 109/75
[2018-11-20] MEDS ORDERED: SODIUM POLYSTYRENE SULFONATE 15 G/60 ML BOT PO SCH (09:30)
[2018-11-20] MEDS: LEVETIRACETAM 500MG TABLET PEG SCH (11:03)
[2018-11-20] MEDS: FAMOTIDINE 20MG TABLET PEG SCH (11:05)
[2018-11-20 12:00] VITALS: BP 103/66
[2018-11-20] MEDS: BLOOD SUGAR DIAGNOSTIC STRIP TEST SCH ×2 (12:00→18:17)
[2018-11-20] MEDS: GUAIFENESIN 200MG/10ML SUGAR FREE UDC PO SCH ×2 (14:05→21:43)
[2018-11-20 16:00] VITALS: BP 105/65
[2018-11-20] MEDS: VANCOMYCIN 750 MG PREMIX 150 ML IV SCH (16:51)
[2018-11-20 20:00] VITALS: BP 114/79
[2018-11-20] MEDS: LEVETIRACETAM 500MG/5ML CUP PEG SCH (21:43)
[2018-11-21] VITALS: BP 113/70
[2018-11-21] MEDS: BLOOD SUGAR DIAGNOSTIC STRIP TEST SCH ×5 (00:05→23:54)
[2018-11-21] MEDS: IPRATROPIUM/ALBUTEROL 0.5-3(2.5)MG/3ML NEB HHN SCH ×4 (01:10→20:36)
[2018-11-21 04:00] VITALS: BP 104/75
[2018-11-21] MEDS: MEROPENEM 500 MG in SODIUM CHLORIDE 0.9% 50 ML IV SCH (05:51)
[2018-11-21] MEDS: LEVOTHYROXINE SODIUM 88MCG TABLET PO SCH (06:23)
[2018-11-21 06:47] LABS: CHLORIDE 113 mEq/L (98-107)
[2018-11-21 07:26] LABS: BASOPHILS % 1.2 % (0.0-2.0); EOSINOPHILS % 2.9 % (0.0-5.0); HEMATOCRIT. 27.9 % (42.0-52.0); HEMOGLOBIN. 9.4 g/dL (14.0-18.0); LYMPHOCYTES % 10.8 % (20.0-50.0); MEAN CORPUSCULAR HEMOGLOBIN 32.3 pg (28.0-32.0); MEAN CORPUSCULAR VOLUME 95.9 fL (80.0-94.0); MEAN PLATELET VOLUME 8.8 fl (7.4-10.4); MONOCYTES % 11.1 % (2.0-8.0); RED BLOOD CELL COUNT 2.91 mill/uL (4.7-6.1); RED CELL DISTRIBUTION WIDTH 16.8 % (11.6-14.6)
[2018-11-21 08:00] VITALS: BP 102/72
[2018-11-21] MEDS: ACETYLCYSTEINE 100MG/ML 10% VIAL 4ML INH SCH (08:23)
[2018-11-21] MEDS: LEVETIRACETAM 500MG/5ML CUP PEG SCH ×2 (09:22→22:06)
[2018-11-21] MEDS: GUAIFENESIN 200MG/10ML SUGAR FREE UDC PO SCH ×2 (09:22→22:06)
[2018-11-21] MEDS: CITRIC ACID/SODIUM CITRATE SOLN 15ML UDC PO SCH ×3 (09:22→17:00)
[2018-11-21] MEDS: FAMOTIDINE 20MG TABLET PEG SCH (09:49)
[2018-11-21 10:54] LABS: PLATELET 506 x1000/uL (130-400)
[2018-11-21 10:55] LABS: PLATELET ESTIMATE INCREASED
[2018-11-21] MEDS: SODIUM POLYSTYRENE SULFONATE 15 G/60 ML BOT PO NR ×2 (11:24→11:40)
[2018-11-21 12:00] VITALS: BP 111/69
[2018-11-21] MEDS ORDERED: SODIUM POLYSTYRENE SULFONATE 15 G/60 ML BOT PR NR (14:00)
[2018-11-21 16:00] VITALS: BP 169/75
[2018-11-21 20:00] VITALS: BP 100/68
[2018-11-22] VITALS: BP 105/71
[2018-11-22] MEDS: IPRATROPIUM/ALBUTEROL 0.5-3(2.5)MG/3ML NEB HHN SCH ×3 (01:41→13:29)
[2018-11-22 04:00] VITALS: BP 109/73
[2018-11-22] MEDS: BLOOD SUGAR DIAGNOSTIC STRIP TEST SCH ×3 (06:28→17:37)
[2018-11-22] MEDS: LEVOTHYROXINE SODIUM 88MCG TABLET PO SCH (06:31)
[2018-11-22 07:31] LABS: CHLORIDE 112 mEq/L (98-107)
[2018-11-22 08:17] LABS: BASOPHILS % 0.4 % (0.0-2.0); EOSINOPHILS % 3.1 % (0.0-5.0); HEMATOCRIT. 31.2 % (42.0-52.0); HEMOGLOBIN. 10.3 g/dL (14.0-18.0); LYMPHOCYTES % 8.3 % (20.0-50.0); MEAN CORPUSCULAR VOLUME 100.1 fL (80.0-94.0); MONOCYTES % 7.3 % (2.0-8.0); NEUTROPHILS % 80.9 % (40.0-76.0); PLATELET 705 x1000/uL (130-400); RED BLOOD CELL COUNT 3.12 mill/uL (4.7-6.1)
[2018-11-22] MEDS: ACETYLCYSTEINE 100MG/ML 10% VIAL 4ML INH SCH ×2 (08:41→13:29)
[2018-11-22] MEDS: GUAIFENESIN 200MG/10ML SUGAR FREE UDC PO SCH (10:32)
[2018-11-22] MEDS: CITRIC ACID/SODIUM CITRATE SOLN 15ML UDC PO SCH ×2 (10:32→12:39)
[2018-11-22] MEDS: FAMOTIDINE 20MG TABLET PEG SCH (10:32)
[2018-11-22] MEDS: LEVETIRACETAM 500MG/5ML CUP PEG SCH (10:32)
[2018-11-22 12:00] VITALS: BP 110/68
[2018-11-22 15:11] VITALS: BP 110/68
== END 2018-11-22 18:00 | DRG 720 ==
LOC: ER 20:43 → 6WST 11-15 00:25 → EDBEDREQTM 11-15 00:27 → EDBEDREQ 11-15 00:27 → ENRESERV 11-15 02:14 → 6WST 11-22 10:18
PROVIDERS: ADMIT Specialist; ATTEND Specialist
PROC: 02HV33Z Insertion of Infusion Device into Superior Vena Cava, Percutaneous Approach (ICD-10-PCS; 2018-11-15)
PROC: 30233N1 Transfusion of Nonautologous Red Blood Cells into Peripheral Vein, Percutaneous Approach (ICD-10-PCS; principal; 2018-11-16)
DX: A41.59 Other Gram-negative sepsis (principal); J96.20 Acute and chronic respiratory failure, unspecified whether with hypoxia or hypercapnia; E43 Unspecified severe protein-calorie malnutrition; Z99.11 Dependence on respirator [ventilator] status; N17.9 Acute kidney failure, unspecified; E87.0 Hyperosmolality and hypernatremia; Z93.0 Tracheostomy status; J18.9 Pneumonia, unspecified organism; C18.9 Malignant neoplasm of colon, unspecified; K94.23 Gastrostomy malfunction; D64.9 Anemia, unspecified; E86.0 Dehydration; N39.0 Urinary tract infection, site not specified; E87.5 Hyperkalemia; I10 Essential (primary) hypertension; E03.9 Hypothyroidism, unspecified; E11.9 Type 2 diabetes mellitus without complications; G40.909 Epilepsy, unspecified, not intractable, without status epilepticus; K21.9 Gastro-esophageal reflux disease without esophagitis; L98.429 Non-pressure chronic ulcer of back with unspecified severity; Z66 Do not resuscitate; Z85.038 Personal history of other malignant neoplasm of large intestine; Z85.819 Personal history of malignant neoplasm of unspecified site of lip, oral cavity, and pharynx; Z86.73 Personal history of transient ischemic attack (TIA), and cerebral infarction without residual deficits; Z92.3 Personal history of irradiation; Z87.01 Personal history of pneumonia (recurrent); Z51.5 Encounter for palliative care
CPT/HCPCS: 36415; 71045; 71250; 74176; 76770; 80048; 80202; 82040; 82150; 82270; 82550; 82962; 83605; 83735; 83880; 84100; 84145; 84439; 84443; 84481; 84484; 86850; 86900; 86920; 87070; 87077; 87186; 87804; 93005; 93970; 94640; 96365; 96367; 99291; A6261; J2185; J2543; J3370; J7030; J7040; J7050; J7070; J7608; J7620; P9016; A4315